=== PATIENT | male | born 1975 | race Caucasian/White ===

== ENCOUNTER → 2020-05-03 10:17 | Outpatient (CLI) | payer MEDICAID, SELFPAY ==
--- NOTE | 2020-05-03 10:27 | XR_ITS ---
PROCEDURE: XR ELBOW RT MIN 3V CLINICAL INDICATION: tennis elbow Elbow pain COMPARISON: No exams were available for comparison FINDINGS: No fracture or dislocation. No lytic or blastic change. There is normal mineralization. The joint spaces are well-preserved. No significant degenerative/arthritic changes. No erosive changes evident. Other findings:There is a faint area calcification noted along the medial epicondyle. This is nonspecific but could be seen with prior ligamentous injury or dystrophic calcification. There is also faint calcific density along the lateral epicondyle which could also be due to prior ligamentous injury or dystrophic calcification. IMPRESSION: No acute finding. Faint calcification at the medial lateral epicondyle which could be due to prior injury or dystrophic calcification from inflammatory change such as epicondylitis. MRI may confirm medial or lateral epicondylitis if clinically warranted Dictated by: Quincy King MD 05/03/2020 15:19 Electronically signed by Quincy King MD in [place] 05/03/2020 15:19
== END ==
PROVIDERS: PCP Emergency Medicine; Visit Provider Orthopaedic Surgery
DX: M77.11 Lateral epicondylitis, right elbow (principal)
CPT/HCPCS: 73080

== ENCOUNTER → 2021-01-25 07:54 | Outpatient (CLI) | payer MEDICAID, SELFPAY ==
[2021-01-25 08:17] LABS: Basophils # 0.1 K/mm3 (0-0.2); Basophils % 0.8 % (0.1-2.0); Eosinophils # 0.2 K/mm3 (0.0-0.4); Eosinophils % 3.1 % (0.1-12.0); Hematocrit 40.6 % (42.0-52.0); Hemoglobin 13.6 g/dL (14.1-18.0); Lymphocytes # 2.2 K/mm3 (0.7-4.5); Mean Corpuscular HGB Conc 33.5 g/dL (31.8-35.4); Mean Corpuscular Hemoglobin 30.3 pg (27.0-31.2); Mean Corpuscular Volume 90.5 fl (80-94); Mean Platelet Volume 7.9 fl (7.4-10.4); Monocytes # 0.3 K/mm3 (0.1-1.0); Monocytes % 5.5 % (1.7-9.3); Neutrophils # 3.2 K/mm3 (1.8-7.8); Neutrophils % 53.6 % (37.0-80.0); Platelet Count 226 K/mm3 (142-424); Red Blood Count 4.49 M/mm3 (4.60-6.20); Red Cell Distribution Width 13.2 % (11.5-17.5)
[2021-01-25 08:45] LABS: Chloride 104 mmol/L (98-107); Sodium 140 mmol/L (136-145)
[2021-01-25 08:46] LABS: Potassium 4.3 mmoL/L (3.5-5.1)
[2021-01-25 08:48] LABS: Blood Urea Nitrogen 16 mg/dl (9-20); Estimated Glomerular Filt Rate 105 ml/min (>60); GFR (African American) 126 ML/MIN (>60)
[2021-01-25 08:49] LABS: Anion Gap 11.3 mEq/L (5-15); Calcium 9.6 mg/dl (8.4-10.2); Carbon Dioxide 29 mmol/L (22.0-30.0); Glucose 111 mg/dl (74-100)
[2021-01-25 09:08] LABS: Coronavirus 19 IgG Antibody Negative (Negative); Coronavirus 19 IgM Antibody Negative (Negative)
== END ==
PROVIDERS: Visit Provider Orthopaedic Surgery
DX: Z01.818 Encounter for other preprocedural examination (principal); Z20.822 Contact with and (suspected) exposure to COVID-19; M77.11 Lateral epicondylitis, right elbow
CPT/HCPCS: 36415; 80048; 85025; 86328

== ENCOUNTER 2021-01-27 08:45 | Day surgery (SDC) | payer MEDICAID, SELFPAY ==
[2021-01-25 10:23] VITALS: BMI 37.9
[2021-01-27] VITALS (13 sets, daily range): BP systolic 112–178; BP diastolic 53–93; PULSE 53–76; RESP 14–18; TEMP 36.3–36.8; O2SAT 92–100
--- NOTE | 2021-01-27 10:27 | P.PN_ITS ---
[facility] Anesthesia Checklist - Structural Data Admitted From: Home Planned Operative Procedure/s: r elbow I/D Consent for Planned Operative Procedure(s) Verified: Yes - Additional verifications Anesthesia Reactions: No Hx Blood Transfusions: No Blood Transfusion Reaction: No - Airway Assessment C-Spine Mobility Assessed: Yes TMJ Mobility Assessed: Yes Dentition: Poor Dentition - Neurological Assessment Level of Consciousness: Awake, Alert, Appropriate - Anesthesia Plan Anesthesia Risk discussed: Yes Anesthesia Plan: Verified ASA Class: II Anesthesia Type: General - Preoperative Comments Pre-Operative Comments: pt refuses block for po pain relief [facility] History I have reviewed the patient's past medical history: Yes Medical History: Reports:: Asthma, MRSA (knee) Denies:: Cancer, Diabetes Mellitus Type 1, Diabetes Mellitus Type 2, Internal Pacemaker, Seizures *Have you ever received a pneumonia vaccine?: No *Have you received a flu vaccine this season?: No Other Medical History: Denies: Blood Transfusion Reaction Anesthesia experience/problems:: none Laterality Cases: Right: Other Other Surgeries: Yes: Hernia Repair. No: Pacemaker Amputation: No Fractures: No - *Social History Last grade of school completed: High school graduate Smoking Status: Never smoker Alcohol Intake: never Substance Use Type: painkillers *Occupational Status:: employed Household Members: spouse *Travel in the last 8 weeks: None Family Hx:: Asthma, Cancer
--- NOTE | 2021-01-27 12:26 | P.PN_ITS ---
[facility] Anesthesia Record Part I Intake, IV Amount: 200 Estimated blood loss (mL): 10 Urine output (mL): 0 Blood Pressure: 112/53 SaO2: 92 Pulse Rate: 64 Respiratory Rate: 14 Temperature: 98.2 F Patient is:: Drowsy Stable to PACU at:: 12:24
--- NOTE | 2021-01-27 14:26 | PC.NURSE ---
PT READY TO GO HOME. PT UP AMBULATING IN ROOM. PT STATES PAIN IS BETTER STILL RATING PAIN A 7. PT DENIES THE NEED FOR ANYTHING ELSE FOR PAIN.
--- NOTE | 2021-01-27 16:34 | HMH.OPNOTE ---
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 I initially saw him in April 2020, at which time corticosteroid injection was administered. Prior to seeing me, he had received 2 prior injections from a surgeon in [place]. All injections have been helpful in decreasing pain, but they have been temporary in nature his pain has always recurred. He has tried physical therapy in the past without improvement. I prescribed therapy at his last visit but he was unable to do this due to Covid restrictions. Pain is rated a 10 out of 10 with any use of the arm. 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 Non-smoker. He has a history of substance use disorder and is on maintenance Suboxone therapy. He reports no chronic baseline medical comorbidities but does take gabapentin and uses inhalers for his lungs. I discussed treatment options with the patient at length, and I would not recommend continued corticosteroid injection. He has had 3 injections in total, 1 from myself. Physical therapy has been ineffective in the past and he does not wish to continue doing more therapy. I do not think PRP injections are likely to be effective. He is interested in surgical treatment at this time. I discussed the risks of surgery with the patient, including but not limited to: bleeding, infection, neurovascular damage, tendon rupture, failure of the tendon to heal, persistent pain and/or weakness despite therapy, and need for further surgery in the future. The patient vocalized understanding and provided informed consent for the procedure. Operative findings:: implant: Arthrex 1.8mm knotless FiberTak suture anchor x1 Operative note:: The patient was identified in preoperative holding and the right elbow signed by myself. Consent was reviewed and verified with the patient, all questions answered. Anesthesia discussed options with the patient, who declined peripheral nerve block. The decision was made to perform the surgery under general anesthetic using an LMA. He was then taken to the operating room, where he was placed supine on the operative table in the right upper extremity placed on a attached and well-padded arm table. All bony prominences on the left upper and bilateral lower extremities were well-padded. 1 g cefazolin was infused intravenously and general anesthesia induced with an LMA. Once the patient was asleep, the right arm was prepped and draped in the usual sterile fashion. Once the arm was draped, a sterile tourniquet was placed on the upper right arm. Timeout was then performed, identifying the correct patient, correct procedure, and correct site. The procedure was begun by making a oblique incision over the lateral aspect of the right elbow, centered over the lateral column of the humerus and the radiocapitellar joint. This measured approximately 3 cm long. Skin was incised only; after this subcutaneous tissue was bluntly dissected with tenotomy scissors, spreading tissue until the common extensor origin on the lateral epicondyle was identified. A fresh 15 blade was used to incise the common extensor origin and reflect the ECRL and EDC, elevating them off the ECRB. The ECRB was seen to be partially torn with significant degeneration. All degenerative tendon was debrided, removing the degenerated ECRB at its attachment. The lateral epicondyle was lightly debrided with a rongeur, slightly decorticating the bone. The elbow joint capsule was not violated and the lateral ulnar collateral ligament was not vi
[2021-01-28 08:03] VITALS: BP 178/86; PULSE 56; TEMP 36.3
--- NOTE | 2021-01-28 08:03 | P.PN_ITS ---
[facility] Anesthesia Record Part II Discharge Time: 13:06 Destination: Surgical Day Care (OP Surgery) PACU nurse assessment reviewed?: Yes Patient Condition:: Good Anesthesia Complications:: None Swallowing reflex intact?: Yes Cyanosis?: No Blood Pressure: 178/86 Pulse Rate: 56 Temperature: 97.4 F Mental Status: Alert & Oriented Pain level:: 7 Nausea and/or vomitting:: None Intake, IV Amount: 0
== END 2021-01-27 14:26 | disposition home or self-care (01) ==
LOC: OR 08:47
PROVIDERS: PCP Emergency Medicine; Visit Provider Orthopaedic Surgery
PROC: (CPT 24359; principal; 2021-01-27 10:15)
DX: M77.11 Lateral epicondylitis, right elbow (principal); Z79.899 Other long term (current) drug therapy
CPT/HCPCS: 24359; 96374; C1713

== ENCOUNTER → 2021-07-05 19:09 | Outpatient (CLI) | payer MEDICAID, SELFPAY ==
[2021-07-05 20:43] LABS: Amphetamine/Metha Screen,Urine Negative ng/ml (<1000); Barbiturates Screen,Urine Negative ng/ml (<200)
[2021-07-05 20:45] LABS: Benzodiazepines Screen,Urine Negative ng/ml (<200)
[2021-07-05 20:46] LABS: Cannabinoid Screen,Urine Negative ng/ml (<50)
[2021-07-05 20:47] LABS: Cocaine Screen,Urine Negative ng/ml (<300); Methadone Screen,Urine Negative ng/ml (<300)
[2021-07-05 20:48] LABS: Opiate Screen,Urine Negative ng/ml (<300)
[2021-07-05 20:49] LABS: Phencyclidine Screen,Urine Negative ng/ml (<25)
== END ==
PROVIDERS: Visit Provider Emergency Medicine
DX: Z79.899 Other long term (current) drug therapy (principal)
CPT/HCPCS: 80305

== ENCOUNTER 2021-10-03 12:27 | Emergency (ER) | payer MEDICAID, SELFPAY ==
[2021-10-03 13:35] VITALS: BP 143/88; PULSE 77; RESP 16; TEMP 36.9; O2SAT 97; BMI 37.9
--- NOTE | 2021-10-03 13:49 | HMH.EDUTC ---
[facility] Disposition Clinical Impression: Left otitis media Qualifiers: Otitis media type: suppurative Chronicity: acute Recurrence: non-recurrent Spontaneous tympanic membrane rupture: without spontaneous rupture Qualified Code(s): H66.002 - Acute suppurative otitis media without spontaneous rupture of ear drum, left ear Pharyngitis Qualifiers: Pharyngitis/tonsillitis etiology: unspecified etiology Qualified Code(s): J02.9 - Acute pharyngitis, unspecified Disposition: Home, Self-Care Condition on Discharge: Good Instructions: How to Instill Ear Drops, Middle Ear Infection Additional Instructions: Drink plenty of fluids. Take the ibuprofen for pain that we prescribed. Take the medications as directed. Stop the amoxicillin that you are on and start the augmentin 875 mg that we prescribed. Follow up with your regular doctor. GO TO THE ER FOR ANY WORSENING SYMPTOMS Don't start the oral steroids until tomorrow, since you had the shot here today. Prescriptions: Ibuprofen [Ibuprofen 800mg Tablet] 800 mg PO Q8HP PRN #30 tab PRN Reason: Moderate Pain Transmission Status: Received by [facility] Amoxicillin/Potassium Clav [Augmentin 875-125 Tablet] 1 tab PO Q12H 10 Days #20 tab Transmission Status: Received by [facility] Ciprofloxacin HCl/Dexameth [Cipro 0.3%-Dex 0.1% Otic Susp 7.5mL] 2 drops EAR-LEFT BID 7 Days #1 ml Transmission Status: Received by [facility] methylPREDNISolone [Medrol] 4 mg PO DIRECTED 6 Days #21 packet Transmission Status: Received by [facility] Referrals: Will Rock APRN [Primary Care Provider] - Forms: Work/School Release Time of Disposition: 14:06 Medical Decision Making - Medical Records Medical records reviewed: No: I reviewed the patient's medical records. - Jules Inquiry Pt receiving controlled substance: No Vital Signs: 10/03/21 13:35 10/03/21 14:28 Temperature 98.5 F 98.5 F Temperature Source Oral Pulse Rate 77 Pulse Rate [Left] 77 Respiratory Rate 16 16 Blood Pressure 143/88 H Blood Pressure [Right Arm] 143/88 H Blood Pressure Mean [Right Arm] 106 02 Sat by Pulse Oximetry 97 - Lab Data Lab results reviewed: Yes: I reviewed the patient's lab results. Orders (Tests/Meds): ED MEDICATIONS Discontinued Medications Generic Name Dose Route Start Last Admin Trade Name Chuck PRN Reason Stop Dose Admin Ceftriaxone Sodium 1 gm 10/03/21 13:58 10/03/21 14:12 Ceftriaxone 1gm Vial IM 10/03/21 13:59 1 gm ONCE ONE Administration Lidocaine HCl 0 ml 10/03/21 13:58 10/03/21 14:14 Lidocaine 1% 5ml Pf Vial IM 10/03/21 13:59 2 ml ONCE ONE Administration Methylprednisolone Sodium Succinate 125 mg 10/03/21 13:58 10/03/21 14:13 Methylprednisolone Sod Succ 125mg Vial IM 10/03/21 13:59 125 mg ONCE ONE Administration [facility] HPI - General Stated complaint: ear pain and sore throat Time Seen by Provider: 10/03/21 13:49 Mode of Arrival: Ambulatory Source of Information: Patient Limitations: No Limitations Description of Symptoms (Recalled from Triage Doc. by RN): pt c/o a L ear ache HEENT Symptoms (Recalled from RN notes): Yes (L ear ache) Resp Symptoms (Recalled from RN notes): No Skin Symptoms (Recalled from RN notes): No MS Symptoms (Recalled from RN notes): No Functional Status (Recalled from RN notes): wnl - History of Present Illness Provider Complaint: He states that for the past 4 days he has had moderate to severe left ear pain. He had a cold and a scratchy sore throat last week, but that got better other than the ear pain. He has had dizziness at times also. He is on amoxicillin that was prescribed by the [facility] clinic 2 days ago, but his ear pain is getting worse instead of better. He thinks that his ear drum may have busted. He has had some tannish discharge from that ear canal off and on since yesterday, but his pain is worsening instead of getting better. -
[2021-10-03 14:28] VITALS: BP 143/88; PULSE 77; RESP 16; TEMP 36.9
== END 2021-10-03 14:31 | disposition home or self-care (01) ==
PROVIDERS: Emergency Provider Nurse Practitioner Family; PCP Nurse Practitioner Family
DX: H66.002 Acute suppurative otitis media without spontaneous rupture of ear drum, left ear (principal); J02.9 Acute pharyngitis, unspecified; J45.909 Unspecified asthma, uncomplicated
CPT/HCPCS: 96372; 99202; G0463

== ENCOUNTER → 2022-03-02 14:06 | Outpatient (CLI) | payer MEDICAID, SELFPAY ==
[2022-03-02 17:18] LABS: Alanine Aminotransferase 25 U/L (12-78); Albumin Level 4.1 g/dl (3.5-5.0); Albumin/Globulin Ratio 1.6 (1.1-1.8); Alkaline Phosphatase 55 U/L (38-126); Anion Gap 10.3 mEq/L (5-15); Aspartate Amino Transferase 28 U/L (17-59); Bilirubin,Total 0.3 mg/dl (0.2-1.3); Blood Urea Nitrogen 13 mg/dl (9-20); Calcium 8.9 mg/dl (8.4-10.2); Carbon Dioxide 28 mmol/L (22.0-30.0); Chloride 103 mmol/L (98-107); Chol/HDL Ratio 4.8 (1-3.5); Cholesterol 143 mg/dl (140-200); Estimated Glomerular Filt Rate 91 ml/min (>60); GFR (African American) 110 ML/MIN (>60); Globulin 2.6 g/dL (1.3-3.2); Glucose 96 mg/dl (74-100); HDL Cholesterol 30 mg/dl (40-60); Potassium 3.3 mmoL/L (3.5-5.1); Sodium 138 mmol/L (136-145); Total Protein,Serum 6.7 g/dl (6.3-8.2); Triglycerides 163 mg/dl (30-150); VLDL Cholesterol 33 mg/dL (0-40)
[2022-03-02 17:24] LABS: Basophils # 0.1 K/mm3 (0-0.2); Basophils % 1.1 % (0.1-2.0); Eosinophils # 0.1 K/mm3 (0.0-0.4); Eosinophils % 2.2 % (0.1-12.0); Hematocrit 37.6 % (42.0-52.0); Hemoglobin 12.9 g/dL (14.1-18.0); Lymphocytes # 2.3 K/mm3 (0.7-4.5); Lymphocytes % 36.3 % (10-50); Mean Corpuscular HGB Conc 34.3 g/dL (31.8-35.4); Mean Corpuscular Hemoglobin 30.6 pg (27.0-31.2); Mean Corpuscular Volume 89.4 fl (80-94); Mean Platelet Volume 9.1 fl (7.4-10.4); Monocytes # 0.6 K/mm3 (0.1-1.0); Monocytes % 10.1 % (1.7-9.3); Neutrophils # 3.2 K/mm3 (1.8-7.8); Neutrophils % 50.3 % (37.0-80.0); Platelet Count 309 K/mm3 (142-424); Red Blood Count 4.21 M/mm3 (4.60-6.20); Red Cell Distribution Width 13.5 % (11.5-17.5); White Blood Count 6.3 K/mm3 (4.8-10.8)
[2022-03-02 17:30] LABS: Direct LDL Cholesterol 73.49 mg/dL (100-129)
[2022-03-02 17:35] LABS: T4 (Thyroxine) 8.6 ug/dl (5.53-11.0)
[2022-03-02 17:36] LABS: 25-OH Vitamin D, Total 35.4 ng/mL (30-100)
[2022-03-02 17:49] LABS: Prostate Specific Ag Screen 0.4 ng/ml (0.0-4.0); Thyroid Stimulating Hormone 1.16 uIU/mL (0.465-4.68)
[2022-03-02 18:08] LABS: Vitamin B12 662 pg/mL (239-931)
== END ==
PROVIDERS: PCP Nurse Practitioner Family; Visit Provider Nurse Practitioner Family
DX: G62.9 Polyneuropathy, unspecified (principal); N52.1 Erectile dysfunction due to diseases classified elsewhere; R53.83 Other fatigue; E66.9 Obesity, unspecified; Z68.39 Body mass index [BMI] 39.0-39.9, adult
CPT/HCPCS: 80053; 80061; 82306; 82607; 84403; 84436; 84443; 85025; G0103

== ENCOUNTER → 2022-05-26 16:08 | Outpatient (CLI) | payer SELFPAY ==
[2022-05-26 16:59] LABS: Basophils # 0.1 K/mm3 (0-0.2); Basophils % 1.3 % (0.1-2.0); Eosinophils # 0.2 K/mm3 (0.0-0.4); Eosinophils % 2.7 % (0.1-12.0); Hematocrit 38.6 % (42.0-52.0); Hemoglobin 12.5 g/dL (14.1-18.0); Lymphocytes # 2.9 K/mm3 (0.7-4.5); Lymphocytes % 37.8 % (10-50); Mean Corpuscular HGB Conc 32.5 g/dL (31.8-35.4); Mean Corpuscular Hemoglobin 30.1 pg (27.0-31.2); Mean Corpuscular Volume 92.7 fl (80-94); Mean Platelet Volume 8.2 fl (7.4-10.4); Monocytes # 0.4 K/mm3 (0.1-1.0); Monocytes % 5.5 % (1.7-9.3); Neutrophils % 52.8 % (37.0-80.0); Platelet Count 274 K/mm3 (142-424); Red Blood Count 4.17 M/mm3 (4.60-6.20); White Blood Count 7.5 K/mm3 (4.8-10.8)
[2022-05-26 17:20] LABS: Alanine Aminotransferase 28 U/L (12-78); Albumin Level 4.1 g/dl (3.5-5.0); Alkaline Phosphatase 64 U/L (38-126); Anion Gap 8.3 mEq/L (5-15); Aspartate Amino Transferase 25 U/L (17-59); Bilirubin,Direct 0.2 mg/dl (0.0-0.4); Bilirubin,Total 0.2 mg/dl (0.2-1.3); Bilirubin,Unconjugated 0.1 mg/dL (0.0-1.1); Blood Urea Nitrogen 14 mg/dl (9-20); Calcium 9.1 mg/dl (8.4-10.2); Carbon Dioxide 30 mmol/L (22.0-30.0); Chloride 108 mmol/L (98-107); Estimated Glomerular Filt Rate 121 ml/min (>60); GFR (African American) 147 ML/MIN (>60); Glucose 94 mg/dl (74-100); Potassium 4.3 mmoL/L (3.5-5.1); Sodium 142 mmol/L (136-145)
[2022-05-28 23:18] LABS: HIV Screen 4th Generation wRfx Non Reactive; Hep A Ab, IgM Negative; Hepatitis B Core Antibody IgM Negative; Hepatitis B Surface Antigen Negative; Hepatitis C Antibody <0.1
== END ==
PROVIDERS: PCP Emergency Medicine; Visit Provider Family Medicine Addiction Medicine
DX: F11.20 Opioid dependence, uncomplicated (principal); Z11.4 Encounter for screening for human immunodeficiency virus [HIV]
CPT/HCPCS: 36415; 80048; 80074; 80076; 85025; 86703; G0432

== ENCOUNTER → 2022-08-30 16:40 | Outpatient (CLI) | payer SELFPAY ==
[2022-09-06 11:44] LABS: Testosterone, Total, LC/MS 130.5 ng/dL (264.0-916.0); Testosterone,Free 2.6 pg/mL (6.8-21.5)
== END ==
PROVIDERS: PCP Nurse Practitioner Family; Visit Provider Nurse Practitioner Family
DX: E29.1 Testicular hypofunction (principal); R53.83 Other fatigue
CPT/HCPCS: 84402; 84403

== ENCOUNTER 2023-06-29 16:54 | Emergency (ER) | payer BC, SELFPAY ==
[2023-06-29 16:54] VITALS: BP 146/89; PULSE 77; RESP 16; TEMP 36.8; O2SAT 100; BMI 34.9
--- NOTE | 2023-06-29 18:00 | EXP.UTC ---
Discharge Plan Disposition Patient Disposition: Home, Self-Care Condition: Good Prescriptions Prescriptions: New amoxicillin-pot clavulanate 875-125 mg Tablet 1 tab PO Q12H Qty: 20 0RF ciprofloxacin-dexamethasone [Ciprodex] 0.3-0.1 % drops,suspension 4 drp otic (ear) BID 7 Days Qty: 7.5 0RF No Action budesonide-formoterol 80-4.5 mcg/actuation HFA aerosol inhaler 1 puff INHALATION DAILY Qty: 10.2 1RF albuterol sulfate 90 mcg/actuation HFA aerosol inhaler 2 puff INHALATION Q4-6H PRN (Reason: shortness of breath or wheezing) Qty: 8.5 2RF gabapentin 800 mg tablet 800 mg PO QID Qty: 120 2RF Combivent Respimat 20-100 mcg/actuation mist See Rx Instructions .ROUTE .COMPLEX Qty: 4 4RF Dose Instruction: INHALE 1 PUFF BY MOUTH TWICE DAILY NEEDED FOR SHORTNESS OF BREATH OR wheezing Rx Instructions: INHALE 1 PUFF BY MOUTH TWICE DAILY NEEDED FOR SHORTNESS OF BREATH OR wheezing buprenorphine-naloxone 8-2 mg tablet, sublingual SUBLINGUAL famotidine 20 mg tablet 20 mg PO DAILY Qty: 90 3RF sildenafil 100 mg tablet 100 mg PO DAILY Qty: 30 0RF phentermine [Adipex-P] 37.5 mg tablet 37.5 mg PO DAILY 30 Days Qty: 30 0RF Rx Instructions: must administer 30 minutes before or 1-2 hours after breakfast Referrals Follow up/Referrals: Will Rock APRN [Primary Care Provider] - See instructions Activity Restrictions/Add. Instructions Additional Instructions/Restrictions: Take medication as prescribed FOllow up with your Family Doctor if no improvement or any worsening of symptoms Return if needed Straight to ER if any life threatening symptoms Clinical Impressions Clinical Impression: Otitis media Qualifiers: Otitis media type: unspecified Laterality: right Qualified Code(s): H66.91 - Otitis media, unspecified, right ear Otitis externa Qualifiers: Otitis externa type: unspecified type Chronicity: unspecified Laterality: right Qualified Code(s): H60.91 - Unspecified otitis externa, right ear Instructions Patient Instructions: Amoxicillin and Clavulanic Acid, Ciprofloxacin and Dexamethasone Otic Discharge ED Provider: Melanie Montilla [facility] HPI General Stated complaint: right ear ache Mode of Arrival: Ambulatory Source of Information: Patient Limitations: No Limitations Time Seen by Provider: 06/29/23 18:00 Description of Symptoms (Recalled from Triage Doc. by RN): Patient reports right ear pain since Sunday. HEENT Symptoms (Recalled from RN notes): Yes Resp Symptoms (Recalled from RN notes): No Skin Symptoms (Recalled from RN notes): No MS Symptoms (Recalled from RN notes): No Functional Status (Recalled from RN notes): wnl History of Present Illness Provider Complaint: Patient states for the last week he has been having pain in his right ear States that his whole ear feels sore now and it has continued to get worse so this evening he came in to get it checked Related Data Home Medications Medication Instructions Recorded Confirmed buprenorphine 8 mg-naloxone 2 mg tab sublingual 10/01/21 06/15/23 sublingual tablet Previous Rx's Medication Instructions Recorded sildenafil 100 mg tablet 100 mg PO DAILY #30 tabs 03/07/22 albuterol sulfate 90 mcg/actuation 2 puff inhalation Q4-6H PRN 11/29/22 aerosol inhaler shortness of breath or wheezing #8.5 grams budesonide-formoterol HFA 80 1 puff inhalation DAILY Breathing 11/29/22 mcg-4.5 mcg/actuation aerosol problems #10.2 grams inhaler famotidine 20 mg tablet 20 mg PO DAILY #90 tabs 02/21/23 gabapentin 800 mg tablet 800 mg PO QID Pain #120 tabs 05/17/23 ipratropium 20 mcg-albuterol 100 See Rx Instructions .Route 05/17/23 mcg/actuation mist for inhalation .COMPLEX #4 grams (Combivent Respimat) phentermine 37.5 mg tablet 37.5 mg PO DAILY 30 days #30 tabs 06/15/23 (Adipex-P) amoxicillin 875 mg-potassium 1 tab PO Q12H #20 tabs 06/29/23 clavulanate 125 mg tablet ciprofloxacin 0.3 %-dexa
[2023-06-29 18:20] VITALS: BP 146/89; PULSE 77; RESP 16; TEMP 36.8; O2SAT 100
== END 2023-06-29 18:20 | disposition home or self-care (01) ==
PROVIDERS: Emergency Provider Nurse Practitioner; PCP Nurse Practitioner Family
DX: H60.91 Unspecified otitis externa, right ear (principal); Z68.41 Body mass index [BMI] 40.0-44.9, adult; Z87.891 Personal history of nicotine dependence
CPT/HCPCS: 99212; 99214; G0463

== ENCOUNTER 2023-08-25 21:08 | Observation (INO) | payer BC, SELFPAY ==
[2023-08-25 21:16] VITALS: BP 148/79; PULSE 95; RESP 17; TEMP 37.1; O2SAT 98; BMI 35.3
[2023-08-25 22:05] LABS: Alanine Aminotransferase 31 U/L (12-78); Albumin Level 4.4 g/dl (3.5-5.0); Albumin/Globulin Ratio 1.5 (1.1-1.8); Alkaline Phosphatase 49 U/L (38-126); Anion Gap 14.1 mEq/L (5-15); Aspartate Amino Transferase 31 U/L (17-59); Bilirubin,Total 0.7 mg/dl (0.2-1.3); Blood Urea Nitrogen 16 mg/dl (9-20); Calcium 8.8 mg/dl (8.4-10.2); Carbon Dioxide 26 mmol/L (22.0-30.0); Chloride 102 mmol/L (98-107); Creatinine Clearance Estimated 218 mL/min (50-200); Estimated Glomerular Filt Rate 104 ml/min (>60); GFR (African American) 125 ML/MIN (>60); Globulin 2.9 g/dL (1.3-3.2); Glucose 125 mg/dl (74-100); Potassium 3.1 mmoL/L (3.5-5.1); Sodium 139 mmol/L (136-145); Total Protein,Serum 7.3 g/dl (6.3-8.2)
--- NOTE | 2023-08-25 22:30 | CT_ITS ---
PROCEDURE INFORMATION: Exam: CT Right Lower Extremity With Contrast; Lower Leg Exam date and time: 08/25/2023 11:40 PM Age: 47 years old Clinical indication: Pain; Patient HX: Wound just below right knee; Additional info: Leg swelling, pain wound TECHNIQUE: Imaging protocol: CT of the right lower extremity with intravenous contrast was performed. Exam focused on the lower leg. Radiation optimization: All CT scans at this facility use at least one of these dose optimization techniques: automated exposure control; mA and/or kV adjustment per patient size (includes targeted exams where dose is matched to clinical indication); or iterative reconstruction. Contrast material: ISOVUE; Contrast volume: 100 ml; Contrast route: IV; REPORTING DATA: Count of CT and Cardiac NM exams in prior 12 months: This patient has received 0 known CTs and 0 known cardiac nuclear medicine studies in the 12 months prior to the current study. COMPARISON: No relevant prior studies available. FINDINGS: Bones/joints: Tricompartmental osteoarthritis noted at the knee. Corticated densities are noted medial to the patella, potentially dystrophic calcification in the medial patellar retinaculum or sequela of prior injury. No acute fracture. No bony destructive change. There is a small Marshall's cyst without evidence of rupture. Soft tissues: There is diffuse subcutaneous edema involving the calf. A distinct cutaneous defect is not appreciated but there is skin thickening and indentation ventral to the patellar tendon. No soft tissue gas. No discrete fluid collection. No radiopaque foreign body. Vasculature: Veins within the muscular compartment are not compressed. IMPRESSION: 1. Considerable diffuse cutaneous thickening and subcutaneous edema without discrete fluid collection, foreign body, or soft tissue gas. 2. Tricompartmental osteoarthritis with small Marshall's cyst. No evidence Marshall cyst rupture. 3. No evidence of compartment syndrome.
[2023-08-25 22:33] VITALS: BP 132/78; PULSE 88; RESP 18; TEMP 36.8
[2023-08-25 22:42] LABS: VBG HCO3 25.2 mmol/L (23-30); VBG Oxygen Saturation 93.9 % (50-70); VBG PCO2 44.1 mmol/L (35-51); VBG PH 7.38 mmol/L (7.31-7.41); VBG Total CO2 26.6 mmol/L (23-27)
--- NOTE | 2023-08-25 22:42 | PC.NURSE ---
Spoke to [facility] for vancomycin conuslt. Stated he would adjust the medication as needed.
[2023-08-25 22:43] LABS: INR 0.99 (0.9-1.1); Prothrombin Time 10.7 seconds (10.1-12.5)
[2023-08-25 22:47] LABS: Creatine Kinase 264 U/L (55-170)
--- NOTE | 2023-08-25 22:57 | PC.NURSE ---
Called to reverify vancomycin dose, per katia patient is to recieve 2500mg of vancomycin at this time
--- NOTE | 2023-08-25 23:44 | PC.NURSE ---
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
--- NOTE | 2023-08-25 23:54 | HMH.EDGENADL ---
Discharge Plan Disposition Patient Disposition: Admitted Chief Complaint: Skin/Abscess/Foreign Body Prescriptions Prescriptions: No Action budesonide-formoterol 80-4.5 mcg/actuation HFA aerosol inhaler 1 puff INHALATION DAILY Qty: 10.2 1RF albuterol sulfate 90 mcg/actuation HFA aerosol inhaler 2 puff INHALATION Q4-6H PRN (Reason: shortness of breath or wheezing) Qty: 8.5 2RF Combivent Respimat 20-100 mcg/actuation mist See Rx Instructions .ROUTE .COMPLEX Qty: 4 4RF Dose Instruction: INHALE 1 PUFF BY MOUTH TWICE DAILY NEEDED FOR SHORTNESS OF BREATH OR wheezing Rx Instructions: INHALE 1 PUFF BY MOUTH TWICE DAILY NEEDED FOR SHORTNESS OF BREATH OR wheezing gabapentin 800 mg tablet 800 mg PO QID Qty: 120 2RF phentermine [Adipex-P] 37.5 mg tablet 37.5 mg PO DAILY 30 Days Qty: 30 0RF Rx Instructions: must administer 30 minutes before or 1-2 hours after breakfast sildenafil 100 mg tablet 100 mg PO DAILY Qty: 30 0RF buprenorphine-naloxone 8-2 mg tablet, sublingual SUBLINGUAL famotidine 20 mg tablet 20 mg PO DAILY Qty: 90 3RF Referrals Follow up/Referrals: Will Rock APRN [Primary Care Provider] - See instructions Clinical Impressions Clinical Impression: Cellulitis Instructions Patient Instructions: DI for Skin Abscess Discharge ED Provider: Bunny Rene General Adult HPI <Bunny Rene MD - Last Filed: 08/26/23 00:47> General Chief complaint: Skin/Abscess/Foreign Body Stated complaint: RT leg swelling, poss spider bite Time Seen by Provider: 08/25/23 22:30 Mode of Arrival: Family Vehicle Source of Information: Patient Limitations: Language Barrier Description of Symptoms (Recalled from ER Triage Doc. by RN): 47 yo male presents with CC of right lower leg red spot wound, might be a spider bite . States that yesterday he noticed a red spot on his right lateral knee area, and then noticed a distinct enlargement this evening from yesterday. enitrety of area is 8cm x7cm; description of erythema. Interior (ulcerated, open,draining serosanguinous drainage) is 2cm x 3cm. 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 The patient reports that the pain worsened throughout the day, describing it as a burning sensation and feeling like lightning and striking. The patient denies any injury to the leg but mentions a scab on the knee from rubbing it on the floor while installing a floating floor. The pain is reported to be present throughout the entire leg, stopping just below the knee. The patient has a history of a staph infection in the same leg back in 2007, which required drainage and a hospital stay of eight to nine days. 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 The patient noticed swelling in the leg this morning, which was not severe but felt tight. The patient reports no numbness or tingling, only a burning sensation and throbbing pain. The patient typically wears long pants at work. Related Data Home Medications Medication Instructions Recorded Confirmed buprenorphine 8 mg-naloxone 2 mg tab sublingual 10/01/21 08/16/23 sublingual tablet Previous Rx's Medication Instructions Recorded albuterol sulfate 90 mcg/actuation 2 puff inhalation Q4-6H PRN 11/29/22 aerosol inhaler shortness of breath or wheezing #8.5 grams budesonide-formoterol HFA 80 1 puff inhalation DAILY Breathing 11/29/22 mcg-4.5 mcg/actuation aerosol problems #10.2 grams inhaler famotidine 20 mg tablet 20 mg PO DAILY #90 tabs 02/21/23 ipratropium 20 mcg-albuterol 100 See Rx Instructions .Route 05/17/23 mcg/actuation mist for inhalation .COMPLEX #4 grams (Combivent Respimat) gabapentin 800 mg tablet 800 mg PO QI
[2023-08-26 00:27] LABS: Basophils % 0.3 % (0.1-2.0); Eosinophils # 0.2 K/mm3 (0.0-0.4); Eosinophils % 1.6 % (0.1-12.0); Hemoglobin 12.6 g/dL (14.1-18.0); Lymphocytes # 2.7 K/mm3 (0.7-4.5); Lymphocytes % 27.5 % (10-50); Mean Corpuscular Hemoglobin 32.2 pg (27.0-31.2); Mean Corpuscular Volume 89.3 fl (80-94); Mean Platelet Volume 7.7 fl (7.4-10.4); Monocytes # 0.6 K/mm3 (0.1-1.0); Monocytes % 6.1 % (1.7-9.3); Neutrophils # 6.4 K/mm3 (1.8-7.8); Neutrophils % 64.6 % (37.0-80.0); Platelet Count 226 K/mm3 (142-424); Red Blood Count 3.92 M/mm3 (4.60-6.20); White Blood Count 9.9 K/mm3 (4.8-10.8)
--- NOTE | 2023-08-26 01:00 | PC.NURSE ---
Patient arrived to floor via wheelchair at 01:50.
[2023-08-26 01:17] VITALS: BP 148/84; PULSE 80; RESP 20; TEMP 36.4; O2SAT 100; BMI 36.5
--- NOTE | 2023-08-26 01:22 | PC.WOUNDNOTE ---
right lower extremity
--- NOTE | 2023-08-26 01:25 | EXP.HP ---
History of Present Illness *Admission Date: 08/26/23 *History of present illness: This is a 47 yo M obese, with PMHx of GERD, peripheral neuropathy, Asthma who presented with a chief complaint of pain and redness in their leg, which began yesterday evening while changing the alternator on their truck. The patient reports that the pain worsened throughout the day, describing it as a burning sensation and feeling like lightning and striking. The patient denies any injury to the leg but mentions a scab on the knee from rubbing it on the floor while installing a floating floor. The pain is reported to be present throughout the entire leg, stopping just below the knee. The patient has a history of a staph infection in the same leg back in 2007, which required drainage and a hospital stay of eight to nine days. The patient reports no numbness or tingling, only a burning sensation and throbbing pain. Admitted for further treatment. [facility] Disclaimer: The information contained in this section may have been updated after the patient was seen, as this information can be updated by other users. Medical History (Updated 08/26/23 @ 09:58 by David Vasquez MD) BMI 40.0-44.9, adult Left otitis media Otitis externa Otitis media Social History (Updated 08/26/23 @ 02:06 by Rolf Spring RN) Smoking Status: Current every day smoker second hand exposure: Yes alcohol intake: never substance use type: painkillers current occupational status: employed Travel in the last 8 weeks: None household members: spouse current occupation: [employer] current occupational exposures/hazards: No caffeine: Yes Review of Systems Review of Systems Review of systems:: pertinent systems reviewed and negative unless documented below Meds Home Medications and Allergies Home Medications Medication Instructions Recorded Confirmed Type buprenorphine 8 mg-naloxone 2 mg 1 tab sublingual DAILY 10/01/21 08/26/23 History sublingual tablet albuterol sulfate 90 mcg/actuation 2 puff inhalation Q4-6H PRN 11/29/22 08/26/23 Rx aerosol inhaler shortness of breath or wheezing #8.5 grams budesonide-formoterol HFA 80 1 puff inhalation DAILY Breathing 11/29/22 08/26/23 Rx mcg-4.5 mcg/actuation aerosol problems #10.2 grams inhaler famotidine 20 mg tablet 20 mg PO DAILY #90 tabs 02/21/23 08/26/23 Rx ipratropium 20 mcg-albuterol 100 See Rx Instructions .Route 05/17/23 08/26/23 Rx mcg/actuation mist for inhalation .COMPLEX #4 grams (Combivent Respimat) gabapentin 800 mg tablet 800 mg PO QID Pain #120 tabs 08/16/23 08/26/23 Rx phentermine 37.5 mg tablet 37.5 mg PO DAILY 30 days #30 tabs 08/16/23 08/26/23 Rx (Adipex-P) sildenafil 100 mg tablet 100 mg PO DAILY #30 tabs 08/16/23 08/26/23 Rx New Prescriptions to Start Prescriptions: Allergies Allergy/AdvReac Type Severity Reaction Status Date / Time No Known Allergies Allergy Verified 08/16/23 15:26 Exam Data for Last 24 hours Vital signs and Labs for Last 24 Hours: Temp Pulse Resp BP Pulse Ox O2 Del Method 98.3 F 88 18 132/78 98 Room Air 08/25/23 22:33 08/25/23 22:33 08/25/23 22:33 08/25/23 22:33 08/25/23 21:16 08/25/23 21:16 Laboratory Results - last 24 hr 08/25/23 00:18: WBC 9.9, RBC 3.92 L, Hgb 12.6 L, Hct 35.0 L, MCV 89.3, MCH 32.2 H, MCHC 36.0 H, RDW 13.0, Plt Count 226, MPV 7.7, Neut % (Auto) 64.6, Lymph % (Auto) 27.5, [place] % (Auto) 6.1, Eos % (Auto) 1.6, Baso % (Auto) 0.3, Neut # (Auto) 6.4, Lymph # (Auto) 2.7, [place] # (Auto) 0.6, Eos # (Auto) 0.2, Baso # (Auto) 0.0 08/25/23 21:37: PT 10.7, INR 0.99, Sodium 139, Potassium 3.1 L, Chloride 102, Carbon Dioxide 26, Anion Gap 14.1, BUN 16, Creatinine 0.80, Estimated Creat Clear 218, Estimated GFR 104, Est GFR ( Amer) 125, Glucose 125 H, Calcium 8.8, Total Bilirubin 0.7, AST 31, ALT 31, Alkaline Phosphatase 49, Total Creatine Kinase 264 H, Total Protein 7.3, Albumin 4.4, Globulin 2.9, Albumin/
[2023-08-26 01:29] VITALS: BP 140/86; PULSE 88; RESP 18; TEMP 37.1
--- NOTE | 2023-08-26 01:34 | PC.NURSE ---
report given to PREM Garcia: 2nd floor
[2023-08-26 03:57] LABS: Lactic Acid 0.7 mmol/L (0.7-2.1)
[2023-08-26 04:00] VITALS: BP 140/72; PULSE 81; RESP 20; TEMP 36.7; O2SAT 96
--- NOTE | 2023-08-26 05:18 | PC.NURSE ---
pt has c/o right lower extremity pain 1x, tx per dec - wound culture collected - wound picture documented, no spreading noted since admission tonight. otherwise no complaints per pt. bed locked and in lowest position, call amanda within reach.
[2023-08-26 07:02] LABS: Basophils % 0.2 % (0.1-2.0); Eosinophils # 0.2 K/mm3 (0.0-0.4); Eosinophils % 1.9 % (0.1-12.0); Hemoglobin 12.5 g/dL (14.1-18.0); Lymphocytes # 2.1 K/mm3 (0.7-4.5); Lymphocytes % 19.9 % (10-50); Mean Corpuscular HGB Conc 34.6 g/dL (31.8-35.4); Mean Corpuscular Hemoglobin 31.7 pg (27.0-31.2); Mean Corpuscular Volume 91.7 fl (80-94); Mean Platelet Volume 7.5 fl (7.4-10.4); Monocytes # 0.8 K/mm3 (0.1-1.0); Monocytes % 7.2 % (1.7-9.3); Neutrophils # 7.3 K/mm3 (1.8-7.8); Neutrophils % 70.8 % (37.0-80.0); Platelet Count 228 K/mm3 (142-424); Red Blood Count 3.93 M/mm3 (4.60-6.20); Red Cell Distribution Width 13.3 % (11.5-17.5); White Blood Count 10.4 K/mm3 (4.8-10.8)
[2023-08-26 07:14] LABS: Alanine Aminotransferase 25 U/L (12-78); Albumin Level 3.8 g/dl (3.5-5.0); Albumin/Globulin Ratio 1.3 (1.1-1.8); Alkaline Phosphatase 46 U/L (38-126); Anion Gap 12.4 mEq/L (5-15); Aspartate Amino Transferase 25 U/L (17-59); Bilirubin,Total 0.8 mg/dl (0.2-1.3); Blood Urea Nitrogen 13 mg/dl (9-20); Calcium 8.4 mg/dl (8.4-10.2); Carbon Dioxide 25 mmol/L (22.0-30.0); Chloride 104 mmol/L (98-107); Creatinine Clearance Estimated 259 mL/min (50-200); Estimated Glomerular Filt Rate 121 ml/min (>60); GFR (African American) 146 ML/MIN (>60); Globulin 2.9 g/dL (1.3-3.2); Glucose 116 mg/dl (74-100); Potassium 3.4 mmoL/L (3.5-5.1); Sodium 138 mmol/L (136-145); Total Protein,Serum 6.7 g/dl (6.3-8.2)
[2023-08-26 07:38] LABS: Hemoglobin A1C 5.3 % (4.0-6.0)
[2023-08-26 08:00] VITALS: BP 127/63; PULSE 83; RESP 18; TEMP 36.7; O2SAT 96
--- NOTE | 2023-08-26 08:20 | EXP.PHA.CONS ---
Pharmacy Consult Date: 08/26/23 Time: 08:20 Referring provider: DR HARRIS Reason for Consult:: VANCOMYCIN DOSING CONSULT Allergies Allergy/AdvReac Type Severity Reaction Status Date / Time No Known Allergies Allergy Verified 08/16/23 15:26 Home Medications Medication Instructions Recorded Confirmed Type buprenorphine 8 mg-naloxone 2 mg 1 tab sublingual DAILY 10/01/21 08/26/23 History sublingual tablet albuterol sulfate 90 mcg/actuation 2 puff inhalation Q4-6H PRN 11/29/22 08/26/23 Rx aerosol inhaler shortness of breath or wheezing #8.5 grams budesonide-formoterol HFA 80 1 puff inhalation DAILY Breathing 11/29/22 08/26/23 Rx mcg-4.5 mcg/actuation aerosol problems #10.2 grams inhaler famotidine 20 mg tablet 20 mg PO DAILY #90 tabs 02/21/23 08/26/23 Rx ipratropium 20 mcg-albuterol 100 See Rx Instructions .Route 05/17/23 08/26/23 Rx mcg/actuation mist for inhalation .COMPLEX #4 grams (Combivent Respimat) gabapentin 800 mg tablet 800 mg PO QID Pain #120 tabs 08/16/23 08/26/23 Rx phentermine 37.5 mg tablet 37.5 mg PO DAILY 30 days #30 tabs 08/16/23 08/26/23 Rx (Adipex-P) sildenafil 100 mg tablet 100 mg PO DAILY #30 tabs 08/16/23 08/26/23 Rx New Prescriptions to Start Prescriptions: Height: 1.96 m Weight: 140.341 kg Laboratory Results:: Laboratory Results - last 24 hr 08/25/23 00:18: WBC 9.9, RBC 3.92 L, Hgb 12.6 L, Hct 35.0 L, MCV 89.3, MCH 32.2 H, MCHC 36.0 H, RDW 13.0, Plt Count 226, MPV 7.7, Neut % (Auto) 64.6, Lymph % (Auto) 27.5, [place] % (Auto) 6.1, Eos % (Auto) 1.6, Baso % (Auto) 0.3, Neut # (Auto) 6.4, Lymph # (Auto) 2.7, [place] # (Auto) 0.6, Eos # (Auto) 0.2, Baso # (Auto) 0.0 08/25/23 21:37: PT 10.7, INR 0.99, Sodium 139, Potassium 3.1 L, Chloride 102, Carbon Dioxide 26, Anion Gap 14.1, BUN 16, Creatinine 0.80, Estimated Creat Clear 218, Estimated GFR 104, Est GFR ( Amer) 125, Glucose 125 H, Calcium 8.8, Total Bilirubin 0.7, AST 31, ALT 31, Alkaline Phosphatase 49, Total Creatine Kinase 264 H, Total Protein 7.3, Albumin 4.4, Globulin 2.9, Albumin/Globulin Ratio 1.5, Procalcitonin 0.060 08/25/23 22:31: VBG pH 7.38, VBG pCO2 44.1, VBG pO2 72.0 H, VBG HCO3 25.2, VBG Total CO2 26.6, VBG O2 Saturation 93.9 H, VBG Base Excess 0.0 08/26/23 03:35: Lactate 0.7 08/26/23 06:35: WBC 10.4, RBC 3.93 L, Hgb 12.5 L, Hct 36.0 L, MCV 91.7, MCH 31.7 H, MCHC 34.6, RDW 13.3, Plt Count 228, MPV 7.5, Neut % (Auto) 70.8, Lymph % (Auto) 19.9, [place] % (Auto) 7.2, Eos % (Auto) 1.9, Baso % (Auto) 0.2, Neut # (Auto) 7.3, Lymph # (Auto) 2.1, [place] # (Auto) 0.8, Eos # (Auto) 0.2, Baso # (Auto) 0.0, Sodium 138, Potassium 3.4 L, Chloride 104, Carbon Dioxide 25, Anion Gap 12.4, BUN 13, Creatinine 0.70, Estimated Creat Clear 259, Estimated GFR 121, Est GFR ( Amer) 146, Glucose 116 H, Hemoglobin A1c 5.3, Calcium 8.4, Total Bilirubin 0.8, AST 25, ALT 25, Alkaline Phosphatase 46, Total Protein 6.7, Albumin 3.8 D, Globulin 2.9, Albumin/Globulin Ratio 1.3 Medical History: Medical History (Updated 08/26/23 @ 06:20 by Joaquin Keating APRN) BMI 40.0-44.9, adult Left otitis media Otitis externa Otitis media Assessment and Plan Assessment and plan all Dx Assessment and Plan for all problems:: Pharmacokinetic dosing service Objective: Age: 47 yo Serum creatinine: 0.7 mg/dL Height: 77.2 Inches Weight (kg): 140.341 Diagnosis: CELLULITIS Assessment: IBW (kg): 89.56 Dosing wt(kg): 140.341 Estimated Creatinine clearance (ml/min): 130 Clearance limited to 130 ml/min to reduce risk of overdosing. CRCL method: Cockcroft and Gault using ibw(default). Drug selected: Vancomycin Loading dose (mg): 2500 MG Vd (liters): 98.2 (factor used: 0.7 L/kg) Joaquín (hr-1): 0.112 Half life (hrs): 6.19 CLvanco=?? 10.998 L/hr Recommended dose: 2000 mg Interval: 8 hrs Infusion time (hrs): 2.0 Predicted pea
--- NOTE | 2023-08-26 09:57 | EXP.SURG.CON ---
History of Present Illness *Admission Date: 08/26/23 *Reason for visit:: Right lower extremity abscess *History of present illness: Forwarded from admission H&P: This is a 47 yo M obese, with PMHx of GERD, peripheral neuropathy, Asthma who presented with a chief complaint of pain and redness in their leg, which began yesterday evening while changing the alternator on their truck. The patient reports that the pain worsened throughout the day, describing it as a burning sensation and feeling like lightning and striking. The patient denies any injury to the leg but mentions a scab on the knee from rubbing it on the floor while installing a floating floor. The pain is reported to be present throughout the entire leg, stopping just below the knee. The patient has a history of a staph infection in the same leg back in 2007, which required drainage and a hospital stay of eight to nine days. The patient reports no numbness or tingling, only a burning sensation and throbbing pain. Admitted for further treatment. [facility] Disclaimer: The information contained in this section may have been updated after the patient was seen, as this information can be updated by other users. Medical History (Updated 08/26/23 @ 09:58 by David Vasquez MD) BMI 40.0-44.9, adult Left otitis media Otitis externa Otitis media Social History (Updated 08/26/23 @ 02:06 by Rolf Spring RN) Smoking Status: Current every day smoker second hand exposure: Yes alcohol intake: never substance use type: painkillers current occupational status: employed Travel in the last 8 weeks: None household members: spouse current occupation: [employer] current occupational exposures/hazards: No caffeine: Yes Meds Home Medications and Allergies Home Medications Medication Instructions Recorded Confirmed Type buprenorphine 8 mg-naloxone 2 mg 1 tab sublingual DAILY 10/01/21 08/26/23 History sublingual tablet albuterol sulfate 90 mcg/actuation 2 puff inhalation Q4-6H PRN 11/29/22 08/26/23 Rx aerosol inhaler shortness of breath or wheezing #8.5 grams budesonide-formoterol HFA 80 1 puff inhalation DAILY Breathing 11/29/22 08/26/23 Rx mcg-4.5 mcg/actuation aerosol problems #10.2 grams inhaler famotidine 20 mg tablet 20 mg PO DAILY #90 tabs 02/21/23 08/26/23 Rx ipratropium 20 mcg-albuterol 100 See Rx Instructions .Route 05/17/23 08/26/23 Rx mcg/actuation mist for inhalation .COMPLEX #4 grams (Combivent Respimat) gabapentin 800 mg tablet 800 mg PO QID Pain #120 tabs 08/16/23 08/26/23 Rx phentermine 37.5 mg tablet 37.5 mg PO DAILY 30 days #30 tabs 08/16/23 08/26/23 Rx (Adipex-P) sildenafil 100 mg tablet 100 mg PO DAILY #30 tabs 08/16/23 08/26/23 Rx New Prescriptions to Start Prescriptions: Allergies Allergy/AdvReac Type Severity Reaction Status Date / Time No Known Allergies Allergy Verified 08/16/23 15:26 Exam (Inpt) Vital signs and Labs for Last 24 Hours: Temp Pulse Resp BP Pulse Ox O2 Del Method 98.1 F 83 18 127/63 96 Room Air 08/26/23 08:00 08/26/23 08:00 08/26/23 08:00 08/26/23 08:00 08/26/23 08:00 08/26/23 08:00 Laboratory Results - last 24 hr 08/25/23 00:18: WBC 9.9, RBC 3.92 L, Hgb 12.6 L, Hct 35.0 L, MCV 89.3, MCH 32.2 H, MCHC 36.0 H, RDW 13.0, Plt Count 226, MPV 7.7, Neut % (Auto) 64.6, Lymph % (Auto) 27.5, [place] % (Auto) 6.1, Eos % (Auto) 1.6, Baso % (Auto) 0.3, Neut # (Auto) 6.4, Lymph # (Auto) 2.7, [place] # (Auto) 0.6, Eos # (Auto) 0.2, Baso # (Auto) 0.0 08/25/23 21:37: PT 10.7, INR 0.99, Sodium 139, Potassium 3.1 L, Chloride 102, Carbon Dioxide 26, Anion Gap 14.1, BUN 16, Creatinine 0.80, Estimated Creat Clear 218, Estimated GFR 104, Est GFR ( Amer) 125, Glucose 125 H, Calcium 8.8, Total Bilirubin 0.7, AST 31, ALT 31, Alkaline Phosphatase 49, Total Creatine Kinase 264 H, Total Protein 7.3, Albumin 4.4, Globulin 2.9, Albumin/Globulin Ratio 1.5, Procalcitonin 0.060 08/25/23 22:31: VBG
--- NOTE | 2023-08-26 11:14 | HMH.PHAINT1 ---
Pharmacy Intervention Comments: MEDICATION RECONCILIATION COMPLETE USING LIST FROM MOST RECENT MD OFFICE VISIT AND EXTERNAL PHARMACY FILL HISTORY.
[2023-08-26 15:56] VITALS: BP 148/72; PULSE 77; RESP 18; TEMP 36.7; O2SAT 96
--- NOTE | 2023-08-26 18:23 | PC.NURSE ---
NO ACUTE CHANGES THIS SHIFT. PAIN MEDICINE X2 PER MAR WITH GOOD EFFECTIVENESS. AMBULATING IN ROOM INDEPENDENTLY.
[2023-08-26 20:00] VITALS: BP 160/84; PULSE 76; RESP 18; TEMP 36.6; O2SAT 99
[2023-08-27] VITALS (16 sets, daily range): BP systolic 118–160; BP diastolic 54–92; PULSE 59–79; RESP 12–22; TEMP 36.4–37; O2SAT 93–100; BMI 37.0
[2023-08-27 06:47] LABS: MANUAL DIFFERENTIAL MANUAL DIFFERENTIAL (MANUAL DIFF)
[2023-08-27 06:52] LABS: Basophils % 0.3 % (0.1-2.0); Eosinophils # 0.3 K/mm3 (0.0-0.4); Eosinophils % 2.6 % (0.1-12.0); Lymphocytes # 2.1 K/mm3 (0.7-4.5); Lymphocytes % 21.6 % (10-50); Mean Corpuscular HGB Conc 35.2 g/dL (31.8-35.4); Mean Corpuscular Hemoglobin 32.2 pg (27.0-31.2); Mean Corpuscular Volume 91.3 fl (80-94); Mean Platelet Volume 7.7 fl (7.4-10.4); Monocytes # 0.5 K/mm3 (0.1-1.0); Monocytes % 5.5 % (1.7-9.3); Neutrophils # 6.9 K/mm3 (1.8-7.8); Neutrophils % 70.1 % (37.0-80.0); Platelet Count 227 K/mm3 (142-424); Red Blood Count 4.05 M/mm3 (4.60-6.20); Red Cell Distribution Width 13.3 % (11.5-17.5); White Blood Count 9.8 K/mm3 (4.8-10.8)
[2023-08-27 07:01] LABS: Blood Urea Nitrogen 13 mg/dl (9-20); Calcium 8.7 mg/dl (8.4-10.2); Carbon Dioxide 28 mmol/L (22.0-30.0); Chloride 104 mmol/L (98-107); Creatinine Clearance Estimated 263 mL/min (50-200); Estimated Glomerular Filt Rate 121 ml/min (>60); GFR (African American) 146 ML/MIN (>60); Glucose 103 mg/dl (74-100); Sodium 141 mmol/L (136-145)
[2023-08-27 07:24] LABS: Eosinophils % 3 % (0-3); Lymphocytes % 21 % (10-50); Monocytes % 5 % (2-9); Neutrophils % 71 % (42-76); Platelet Estimate Normal; RBC Morphology Normal; Total Cells Counted 100
--- NOTE | 2023-08-27 07:33 | EXP.SURG.PN ---
Subjective Patient reports: no new complaints Exam Data for Last 24 hours Vital signs and Labs for Last 24 Hours: Temp Pulse Resp BP Pulse Ox O2 Del Method 98.0 F 70 22 145/86 H 96 Room Air 08/27/23 04:00 08/27/23 04:00 08/27/23 04:00 08/27/23 04:00 08/27/23 04:00 08/27/23 06:19 Laboratory Results - last 24 hr 08/26/23 06:35: Hemoglobin A1c 5.3 08/27/23 06:40: WBC 9.8, RBC 4.05 L, Hgb 13.0 L, Hct 37.0 L, MCV 91.3, MCH 32.2 H, MCHC 35.2, RDW 13.3, Plt Count 227, MPV 7.7, Neut % (Auto) 70.1, Lymph % (Auto) 21.6, [place] % (Auto) 5.5, Eos % (Auto) 2.6, Baso % (Auto) 0.3, Neut # (Auto) 6.9, Lymph # (Auto) 2.1, [place] # (Auto) 0.5, Eos # (Auto) 0.3, Baso # (Auto) 0.0, Total Counted 100, Neutrophils % (Manual) 71, Lymphocytes % (Manual) 21, Monocytes % (Manual) 5, Eosinophils % (Manual) 3, Platelet Estimate Normal, RBC Morphology Normal, Sodium 141, Potassium 4.0, Chloride 104, Carbon Dioxide 28, Anion Gap 13.0, BUN 13, Creatinine 0.70, Estimated Creat Clear 263, Estimated GFR 121, Est GFR ( Amer) 146, Glucose 103 H, Calcium 8.7 I & O for Last 24 hours: Intake & Output 08/24/23 08/25/23 08/26/23 08/27/23 12:59 12:59 11:59 11:59 Intake Total 1405 / 1405 Output Total 0 / 0 Balance 1405 / 1405 Weight 314 lb Constitutional Constitutional: no acute distress *Routine Respiratory Exam Respiratory: Absent respiratory distress *Routine Cardiovascular Exam Cardiovascular: Absent tachycardia *Routine Extremities Exam Comments: Right lower extremity abscess unchanged Progress Note: A&P Assessment and plan (1) Abscess of right lower extremity: Status: Acute Assessment and plan: Incision and drainage plan for later today I have discussed the risks and benefits including, but not limited to: Bleeding Infection Damage to surrounding tissue Inherent risks of sedation The patient agrees to proceed.
[2023-08-27 08:50] LABS: Vancomycin,Trough 21.6 ug/mL (5.0-10.0)
--- NOTE | 2023-08-27 10:02 | P.PNANES_ITS ---
[facility] Disclaimer: The information contained in this section may have been updated after the patient was seen, as this information can be updated by other users. Medical History (Updated 08/26/23 @ 09:58 by David Vasquez MD) BMI 40.0-44.9, adult Left otitis media Otitis externa Otitis media Social History (Updated 08/26/23 @ 02:06 by Rolf Spring RN) Smoking Status: Current every day smoker second hand exposure: Yes alcohol intake: never substance use type: painkillers current occupational status: employed Travel in the last 8 weeks: None household members: spouse current occupation: [employer] current occupational exposures/hazards: No caffeine: Yes [facility] Anesthesia Checklist Patient Identification Patient Identification: Arm Band and Verbal (Name & ) Structural Data Admitted From: Inpatient Planned Operative Procedure/s: I&D Right leg abscess Consent for Planned Operative Procedure(s) Verified: Yes Verified Documents: Surgical Consent and History and Physical NPO Status Verified Time NPO: 21:00 Chart Verification Results Verified: CBC and BMP Additional verifications Patient : No Anesthesia Reactions: No Hx Blood Transfusions: No Blood Transfusion Reaction: No Cephalosporin Allergy: No Previous Colonoscopy: No Cardiovascular Assessment Heart Sounds: S1 & S2 Pulse Rhythm: Irregular Peripheral Edema: No Airway Assessment Mallampati Score:: Class III C-Spine Mobility Assessed: Yes TMJ Mobility Assessed: Yes Dentition: Poor Dentition (Nothing loose per pt.) Neurological Assessment Level of Consciousness: Awake, Alert, Appropriate and Follows Commands Hx Seizures: No Numbness or tingling in extremities: No Anesthesia Plan Anesthesia Risk discussed: Yes Anesthesia Plan: Verified ASA Class: III Anesthesia Type: General
--- NOTE | 2023-08-27 10:24 | EXP.OP.NOTE ---
Date of procedure: 08/27/23 Pre-op Diagnosis:: Right lower extremity abscess Post-op Diagnosis:: Same Procedure performed:: Incision and drainage of right lower extremity abscess Surgeon:: David Vasquez MD Anesthesia: local and LMA Estimated blood loss (mL): 5 Operative findings:: Pockets of purulent surrounded by necrotic tissue Operative note:: After informed consent was obtained the patient was taken to the operating room and maintained in the supine position. General anesthesia with laryngeal mask airway was achieved. His lower right leg was prepped and draped in a sterile fashion. An elliptical incision was made around the central portion of the lesion. A pocket of purulence was encountered. Fluid was obtained for Gram stain/culture. Electrocautery was utilized to excise the central (necrotic) portion of the wound and to achieve hemostasis. The wound was packed open. Dressings were applied and patient was transferred to recovery after removal of his laryngeal mask airway. Condition: stable Disposition: PACU Specimens:: Fluid for Gram stain/culture Complications:: No immediate
--- NOTE | 2023-08-27 11:36 | P.PNANES_ITS ---
[facility] Anesthesia Record Part I Anesthesia Record I Intake, IV Amount: 200 Hydration: Adequate Estimated blood loss (mL): 15 Urine output (mL): 0 Blood Products used (#): none Blood Pressure: 122/54 SaO2: 93 Pulse Rate: 79 Airway Patency: Patent Respiratory Rate: 18 Temperature: 97.6 F Patient is:: Awake, Drowsy and Stable Stable to PACU at:: 10:35
--- NOTE | 2023-08-27 15:22 | EXP.DC.SUM ---
General Admission date:: 08/26/23 Discharge date: 08/27/23 HPI HPI HPI: This is a 47 yo M obese, with PMHx of GERD, peripheral neuropathy, Asthma who presented with a chief complaint of pain and redness in their leg, which began yesterday evening while changing the alternator on their truck. The patient reports that the pain worsened throughout the day, describing it as a burning sensation and feeling like lightning and striking. The patient denies any injury to the leg but mentions a scab on the knee from rubbing it on the floor while installing a floating floor. The pain is reported to be present throughout the entire leg, stopping just below the knee. The patient has a history of a staph infection in the same leg back in 2007, which required drainage and a hospital stay of eight to nine days. The patient reports no numbness or tingling, only a burning sensation and throbbing pain. Admitted for further treatment. Hospital Course Hospital Course Hospital Course: 47 yo M obese, with PMHx of GERD, peripheral neuropathy, Asthma who presented with a chief complaint of pain and redness in their leg. patient with previous Hx of staph infection required hospitalization. Upon arrival BC was drawn. patient was placed on IV vanco and zoxyn. CT of the leg was obtained. significant for soft tissue swelling. Findings are consistent with cellulitis. Labs work are remarkable for moderate hypokalemia. discussed with ER provider for admission. Patient initiated on IV antibiotics, improvement in erythema. Taken for I&D on day of discharge. Tolerated well. Stable for discharge home with oral antibiotics to complete therapy. Problems addressed during hospitalization as follows: - Right lower leg cellulitis/abscess Admit to [facility] for management. Started on vancomycin and Zosyn given history of staph. Surgery was consulted, patient taken for I&D on 08/27. We will continue antibiotics with oral Bactrim twice daily. Patient remained afebrile and had normal white count of 9.8 on day of discharge. Follow-up with surgery in the coming weeks for reevaluation of wound. Tylenol for pain management. Dressing changes daily with clean dry dressing. - Hypokalemia Low on admission, replaced during admission. Potassium 4.0 on discharge. -Neuropathy: Hx of neuropathy will predispose to unnoticed trauma that may lead to secondary infection. Continued home gabapentin at discharge Asthma: Continue home regimen. Spent 40 minutes in discharge counseling, documentation, coordination of care and discussion with subspecialist, and direct care with patient. Exam Data for Last 24 hours Vital signs and Labs for Last 24 Hours: Temp Pulse Resp BP Pulse Ox O2 Del Method 97.7 F 68 20 145/87 H 98 Room Air 08/27/23 15:04 08/27/23 14:45 08/27/23 14:45 08/27/23 14:45 08/27/23 14:45 08/27/23 14:53 Laboratory Results - last 24 hr 08/27/23 06:40: WBC 9.8, RBC 4.05 L, Hgb 13.0 L, Hct 37.0 L, MCV 91.3, MCH 32.2 H, MCHC 35.2, RDW 13.3, Plt Count 227, MPV 7.7, Neut % (Auto) 70.1, Lymph % (Auto) 21.6, [place] % (Auto) 5.5, Eos % (Auto) 2.6, Baso % (Auto) 0.3, Neut # (Auto) 6.9, Lymph # (Auto) 2.1, [place] # (Auto) 0.5, Eos # (Auto) 0.3, Baso # (Auto) 0.0, Total Counted 100, Neutrophils % (Manual) 71, Lymphocytes % (Manual) 21, Monocytes % (Manual) 5, Eosinophils % (Manual) 3, Platelet Estimate Normal, RBC Morphology Normal, Sodium 141, Potassium 4.0, Chloride 104, Carbon Dioxide 28, Anion Gap 13.0, BUN 13, Creatinine 0.70, Estimated Creat Clear 263, Estimated GFR 121, Est GFR ( Amer) 146, Glucose 103 H, Calcium 8.7, Vancomycin Trough 21.6 H I & O for Last 24 hours: Intake & Output 08/25/23 08/26/23 08/26/23 08/27/23 00:59 00:59 23:59 23:59 Intake Total 440 / 440 Output Total 0 / 0 Balance 440 / 440 Weight 142.428 kg Constitutional Constitutional: no acute distress and obese *Routine HEENT Exam Head: Present normocephalic Eye: Present EOMI an
--- NOTE | 2023-08-28 07:01 | EXP.ANES.II ---
[facility] Anesthesia Record Part II Anesthesia Record Part II Discharge Time: 11:00 Destination: Medical Surgical Department PACU nurse assessment reviewed?: Yes Patient Condition:: Good Anesthesia Complications:: None Swallowing reflex intact?: Yes Airway Patency: Patent Cyanosis?: No Blood Pressure: 122/54 SaO2: 93 Respiratory Rate: 18 Pulse Rate: 79 Temperature: 97.6 F Mental Status: Alert & Oriented Pain level:: 0 Nausea and/or vomitting:: None Intake, IV Amount: 200 Hydration: Adequate
[2023-08-28 07:04] VITALS: BP 122/54; PULSE 79; RESP 18; TEMP 36.4; O2SAT 93
--- NOTE | 2023-08-30 13:19 | CARE MANAGER ---
Attempted to contact patient x 2 related to hospital discharge. Left VM message. PREM Murray
== END 2023-08-27 16:26 | disposition home or self-care (01) ==
LOC: 2ND 08-26 01:11 → ER 08-26 01:11
PROVIDERS: Nurse Practitioner Family; Surgery; Admitting Provider Internal Medicine; Emergency Provider Emergency Medicine; PCP Nurse Practitioner Family; Visit Provider Internal Medicine
DX: L02.415 Cutaneous abscess of right lower limb (principal); E87.6 Hypokalemia; L03.115 Cellulitis of right lower limb; K21.9 Gastro-esophageal reflux disease without esophagitis; J45.30 Mild persistent asthma, uncomplicated; Z23 Encounter for immunization; F17.210 Nicotine dependence, cigarettes, uncomplicated
CPT/HCPCS: 10061; 36415; 73701; 80048; 80053; 80202; 82550; 82803; 83036; 83605; 84145; 85007; 85014; 85018; 85025; 85048; 85049; 85610; 87040; 87070; 87075; 87205; 90715; 99285; G0378; J0574; J0690; J2543; J3370; Q9967

== ENCOUNTER 2023-12-05 22:01 | Outpatient (CLI) | payer BC, SELFPAY | END 2023-12-05 23:59 | LOC: LAB.DROPOF 22:02 | PROVIDERS: PCP Nurse Practitioner Family; Visit Provider Nurse Practitioner Family | DX: N39.0 Urinary tract infection, site not specified (principal) | CPT/HCPCS: 87086 ==

== ENCOUNTER 2023-12-10 12:29 | Emergency (ER) | payer BC, SELFPAY ==
[2023-12-10 12:30] VITALS: BP 156/95; PULSE 77; RESP 18; TEMP 36.7; O2SAT 99; BMI 37.9
--- NOTE | 2023-12-10 12:57 | PC.NURSE ---
DR WELLER AT BEDSIDE
[2023-12-10 13:02] LABS: Basophils % 0.2 % (0.1-2.0); Eosinophils % 0.2 % (0.1-12.0); Hematocrit 39.2 % (42.0-52.0); Hemoglobin 13.6 g/dL (14.1-18.0); Lymphocytes # 1.8 K/mm3 (0.7-4.5); Lymphocytes % 18.2 % (10-50); Mean Corpuscular HGB Conc 34.8 g/dL (31.8-35.4); Mean Corpuscular Hemoglobin 31.2 pg (27.0-31.2); Mean Corpuscular Volume 89.8 fl (80-94); Monocytes # 0.3 K/mm3 (0.1-1.0); Monocytes % 2.7 % (1.7-9.3); Neutrophils # 7.8 K/mm3 (1.8-7.8); Neutrophils % 78.8 % (37.0-80.0); Platelet Count 276 K/mm3 (142-424); Red Blood Count 4.36 M/mm3 (4.60-6.20); Red Cell Distribution Width 13.6 % (11.5-17.5); White Blood Count 9.9 K/mm3 (4.8-10.8)
--- NOTE | 2023-12-10 13:02 | CT_ITS ---
FINAL REPORT TECHNIQUE: Axial imaging of the lumbar spine was obtained without contrast. Reformatted images were also obtained and reviewed.This study was performed with techniques to keep radiation doses as low as reasonably achievable, (ALARA). Individualized dose reduction techniques using automated exposure control or adjustment of mA and/or kV according to the patient's size were employed. CLINICAL HISTORY: L lower back pain FINDINGS: There is no acute fracture or subluxation. The vertebra are normal height. There is moderate disc space narrowing at L1-2, L4-5 and L5-S1. There is no malalignment. Facets are properly aligned. Prevertebral soft tissues unremarkable. T12-L1: Unremarkable. L1-2: Unremarkable. L2-3:: Moderate left posterolateral disc protrusion with moderate to high-grade left neuroforaminal narrowing. L3-4: Moderate diffuse disc bulge with endplate hypertrophy and moderate bilateral neuroforaminal narrowing. L4-5: Moderate diffuse disc bulge with endplate hypertrophy and moderate bilateral neuroforaminal narrowing. L5-S1: Moderate diffuse disc bulge with endplate hypertrophy and moderate to high-grade bilateral neuroforaminal narrowing. IMPRESSION: No acute bony abnormality. Multilevel degenerative disc disease with moderate to high-grade neuroforaminal narrowing as above. Reviewed, Interpreted and Dictated by Jeffrey Negrete MD Transcribed by Beatris Dumont Authenticated and [facility]
--- NOTE | 2023-12-10 13:04 | ED_ITS ---
Discharge Plan Disposition Patient Disposition: Home, Self-Care Condition: Fair Prescriptions Prescriptions: New methocarbamol 750 mg tablet 750 mg PO TID PRN (Reason: pain) 5 Days Qty: 15 0RF lidocaine 5 % adhesive patch,medicated 1 patch topical DAILY Qty: 15 0RF Rx Instructions: leave on most painful area for up to 12 hrs oxycodone-acetaminophen [Percocet] 5-325 mg tablet 1 tab PO Q8H PRN (Reason: pain) 2 Days Qty: 6 0RF No Action budesonide-formoterol 80-4.5 mcg/actuation HFA aerosol inhaler 1 puff INHALATION DAILY Qty: 10.2 1RF gabapentin 800 mg tablet 800 mg PO TID Qty: 90 2RF naproxen 500 mg tablet 500 mg PO BID Qty: 30 0RF prednisone 20 mg tablet 20 mg PO BID 5 Days Qty: 10 0RF buprenorphine-naloxone 8-2 mg tablet, sublingual 2 tab SUBLINGUAL DAILY famotidine 20 mg Tablet 20 mg PO DAILY albuterol sulfate 90 mcg/actuation Hfa Aerosol Inhaler 2 puff INHALATION Q4HP PRN (Reason: Shortness Of Breath Or Wheezing) sildenafil 100 mg tablet 100 mg PO DAILY Referrals Follow up/Referrals: Will Rock APRN [Primary Care Provider] - See instructions Activity Restrictions/Add. Instructions Additional Instructions/Restrictions: You have been evaluated in the ED for your complaints. You may follow-up with your PCP in the next 3 to 5 days. Please return to ED for any new or worsening symptoms. As discussed, please continue taking your prednisone that was prescribed to you by your primary care provider. I have written for prescription for Robaxin as well as lidocaine patches to further assist. You may also take ibuprofen 800 mg every 5-6 hours and 1000 mg of Tylenol every 5-6 hours as needed. Clinical Impressions Clinical Impression: Left sided sciatica, Low back pain Stand Alone Forms Stand Alone Forms: Work/School Release Instructions Patient Instructions: DI for Back Pain With Sciatica Discharge ED Provider: Aiden Joiner Adult [facility] General Chief complaint: PAIN Stated complaint: back pain, L side, poss kidney stones Time Seen by Provider: 12/10/23 12:55 Mode of Arrival: Ambulatory Source of Information: Patient Limitations: No Limitations Description of Symptoms (Recalled from ER Triage Doc. by RN): Patient complaint of left sided flank pain for 1 week. States he went to his PCP who gave him some shots and checked his urine. States the pain became unbearable today. History of Present Illness HPI narrative: 48-year-old male with past medical history significant for GERD, left-sided sciatica, presents today for evaluation concerning left lower back pain rating down to his left lower extremity that has been worsening over the past week. He denies having any abdominal pain, dysuria, hematuria. 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 Denies any new injuries. Denies having any fevers, chills, chest pain, shortness of breath, nausea, vomiting. States that he has been taking gabapentin with minimal relief. He has no further complaints. Related Data Home Medications Medication Instructions Recorded Confirmed buprenorphine 8 mg-naloxone 2 mg 2 tab sublingual DAILY WITHDRAWAL 10/01/21 12/05/23 sublingual tablet albuterol sulfate 90 mcg/actuation 2 puff inhalation Q4HP PRN 08/26/23 12/05/23 aerosol inhaler Shortness Of Breath Or Wheezing famotidine 20 mg tablet 20 mg PO DAILY Acid Reflux 08/26/23 12/05/23 sildenafil 100 mg tablet 100 mg PO DAILY ERECTILE 08/26/23 12/05/23 DYSFUNCTION Previous Rx's Medication Instructions Recorded budesonide-formoterol HFA 80 1 puff inhalation DAILY Breathing 11/29/22 mcg-4.5 mcg/actuation aerosol problems #10.2 grams inhaler gabapentin 800 mg tablet 800 mg PO TID Pain #90 tabs 12/05/23 naproxen 500 mg tablet 500 mg PO BID #30 tabs 12/05/23 prednisone 20 mg tablet 20 mg PO BID 5 days #10 tabs 12/05/23 lidocaine 5 % topical patch 1 patch topical DAILY #15 ea 12/10/23 methocarbamol 750 mg tablet 750 mg PO TID PRN pain 5 days #15 12/10/23 tabs oxycodone-acetaminophen 5 mg-325 1 tab PO Q8H PRN pain 2 days #6 12/10/23 mg tablet (Percocet) tabs Allergies Allergy/AdvReac Type Severity Reaction Status Date / Time No Known Allergies Allergy Verified 12/05/23 15:58 [facility] Disclaimer: The information contained in this section may have been updated after the patient was seen, as this information can be updated by other users. Medical History (Updated 12/10/23 @ 15:30 by Aiden Joiner DO) BMI 40.0-44.9, adult Left otitis media Otitis externa Otitis media Social History (Updated 08/26/23 @ 02:06 by Rolf Spring RN) Smoking Status: Never smoker second hand exposure: Yes alcohol intake: never substance use type: painkillers current occupational status: employed Travel in the last 8 weeks: None household members: spouse current occupation: [employer] current occupational exposures/hazards: No caffeine: Yes ROS Obtained: Yes All systems reviewed & no additional complaints except as documented Physical Exam General General appearance: alert and in no apparent distress Head Head exam: atraumatic and normocephalic Eye Eye exam: Present normal appearance, PERRL and EOMI ENT ENT exam: Present normal oropharynx and mucous membranes moist Neck Neck exam: Present full ROM; Absent meningismus Respiratory Respiratory exam: Absent respiratory distress, wheezes, stridor or accessory muscle use Cardiovascular Cardiovascular exam: Present normal rhythm Abdominal Exam Abdominal exam: Present soft; Absent distention, tenderness, guarding, rebound or rigidity Back Exam Back exam: Present normal inspection, tenderness and paraspinal tenderness (Moderate left lower lumbar paraspinal tenderness to palpation); Absent CVA tenderness (R), CVA tenderness (L), vertebral tenderness or straight leg raise (L) Neurological Exam Neurological exam: Present alert, oriented X3 and CN II-XII intact; Absent motor sensory deficit Psychiatric Psychiatric exam: Present normal affect and normal mood Skin Skin exam: Present warm and dry Medical Decision Making Medical Records Medical records reviewed: Yes I reviewed the patient's medical records. Jules Inquiry Pt receiving controlled substance: No Jules was queried for this patient: No Vital Signs: 12/10/23 12:30 Temperature 98.1 F Temperature Source Oral Pulse Rate [Radial] 77 Respiratory Rate 18 Blood Pressure [Right Arm] 156/95 H Blood Pressure Mean [Right Arm] 115 Blood Pressure Source [Right Arm] Automatic Cuff Blood Pressure Position [Right Arm] Sitting 02 Sat by Pulse Oximetry 99 Oxygen Delivery Method Room Air Lab Data Lab Results 12/10/23 12:47: WBC 9.9, RBC 4.36 L, Hgb 13.6 L, Hct 39.2 L, MCV 89.8, MCH 31.2, MCHC 34.8, RDW 13.6, Plt Count 276, MPV 8.0, Neut % (Auto) 78.8, Lymph % (Auto) 18.2, Owen % (Auto) 2.7, Eos % (Auto) 0.2, Baso % (Auto) 0.2, Neut # (Auto) 7.8, Lymph # (Auto) 1.8, Owen # (Auto) 0.3, Eos # (Auto) 0.0, Baso # (Auto) 0.0, Sodium 136, Potassium 4.6, Chloride 102, Carbon Dioxide 32 H, Anion Gap 6.6, BUN 17, Creatinine 0.80, Estimated Creat Clear 232, Estimated GFR 103, Est GFR (A frican Amer) 125, Glucose 113 H, Calcium 9.3, Total Bilirubin 0.5, AST 38, ALT 40, Alkaline Phosphatase 62, Total Protein 7.9, Albumin 4.5, Globulin 3.4 H, Albumin/Globulin Ratio 1.3, Urine Color Yellow, Urine Appearance Clear, Urine pH 6.0, Ur Specific [place] 1.020, Urine Protein Negative, Urine Glucose (UA) Negative, Urine Ketones Negative, Urine Blood Negative, Urine Nitrate Negative, Urine Bilirubin Negative, Urine Urobilinogen 0.2, Ur Leukocyte Esterase Negative, Urine RBC None, Urine WBC Occasional, Ur Squamous Epith Cells Occasional, Urine Bacteria Trace 12/10/23 12:47 12/10/23 12:47 Orders (Tests/Meds): ED MEDICATIONS Generic Name Dose Route Start Last Admin Trade Name Freq PRN Reason Stop Dose Admin Lidocaine 1 each 12/10/23 13:15 12/10/23 13:08 Lidocaine 5% Transdermal Patch TP 01/09/24 13:14 1 each Q24H ILDA Administration Sodium Chloride 10 ml 12/10/23 12:53 Sodium Chloride 0.9% 10ml Flush Syringe IV 01/09/24 12:52 NEEDED PRN Maintain IV Site Discontinued Medications Generic Name Dose Route Start Last Admin Trade Name Freq PRN Reason Stop Dose Admin Acetaminophen 1,000 mg 12/10/23 13:02 12/10/23 13:08 Acetaminophen 500mg Tab PO 12/10/23 13:03 1,000 mg ONCE ONE Administration Hydromorphone HCl 1 mg 12/10/23 14:19 12/10/23 14:23 Hydromorphone 2mg/Ml Syringe IV 12/10/23 14:20 1 mg ONCE ONE Administration Ketorolac Tromethamine 30 mg 12/10/23 13:02 12/10/23 13:08 Ketorolac 30mg/Ml Vial IV 12/10/23 13:03 30 mg ONCE ONE Administration Methocarbamol 500 mg 12/10/23 13:03 12/10/23 13:08 Methocarbamol 500mg Tablet PO 12/10/23 13:04 500 mg ONCE ONE Administration Morphine Sulfate 4 mg 12/10/23 13:02 12/10/23 13:08 Morphine 4mg/Ml Syringe IV 12/10/23 13:03 4 mg ONCE ONE Administration ORDERS Category Date Time Status CT lumbar spine wo con Stat Cat Scan 12/10/23 13:02 Taken Complete Blood Count Auto Diff Stat Lab 12/10/23 12:47 Completed Comprehensive Metabolic Panel Stat Lab 12/10/23 12:47 Completed Urinalysis and Microscopic Stat Lab 12/10/23 12:47 Completed Medical Decision Narrative: 48-year-old male with past medical history significant for GERD, left-sided sciatica, presents today for evaluation concerning left lower back pain rating down to his left lower extremity that has been worsening over the past week. States that he does heavy lifting on a daily basis at his place of work. He denies having any new injuries. Denies any fevers, chills, chest pain, shortness of breath. Does not have a history of IV drug use. On assessment he was hemodynamically stable and in mild distress secondary to his pain. He did have tenderness palpation along the paraspinal musculature along the left lower lumbar spine. No midline tenderness to palpation of the C/T/L-spine. No external signs of trauma. The abdomen was soft, nondistended and nontender to palpation. Straight leg test raise performed and did not increase patient's p ain. Other physical exam findings unremarkable. No focal neurodeficits. Ambulatory. Differential diagnosis includes not limited to spondylolisthesis, sciatica, fracture, musculoskeletal pain, among others. Lab work today remarkable for a WBC of 9.9. Stable anemia with hemoglobin of 13.6, hematocrit of 39.2. CMP nonactionable. Urinalysis without signs of UTI. No blood noted. CT imaging of the L-spine with no acute bony abnormalities. Multilevel degenerative disc disease with moderate to high-grade neuroforaminal narrowing. Patient initially received 4 mg of IV morphine, 30 of IV Toradol, 500 mg Robaxin. On reassessment his pain was not much improved and so I did order for 1 mg of Dilaudid to further assist. On second reassessment his pain was slightly improved at this time. He was able to ambulate on my reassessment. Discussed with patient ED work-up and results and current plan to discharge. Provided with return to ED precautions and instructions concerning PCP follow- up. Will provide patient with prescription for Robaxin, lidocaine patch and a 2-day course of Percocet to further assist with his pain. Patient verbalized understanding and agreement with plan. Subsequently discharged hemodynamically stable and in no acute distress. Critical Care Critical Care Time Critical Care Time: No
[2023-12-10 13:05] LABS: Chloride 102 mmol/L (98-107); Potassium 4.6 mmoL/L (3.5-5.1); Sodium 136 mmol/L (136-145)
[2023-12-10 13:06] LABS: Microscopic, Urine URINE MICROSCOPIC (MICROSCOPIC)
[2023-12-10 13:07] LABS: Alanine Aminotransferase 40 U/L (12-78); Aspartate Amino Transferase 38 U/L (17-59); Blood Urea Nitrogen 17 mg/dl (9-20); Creatinine Clearance Estimated 232 mL/min (50-200); Estimated Glomerular Filt Rate 103 ml/min (>60); GFR (African American) 125 ML/MIN (>60)
[2023-12-10 13:08] LABS: Albumin Level 4.5 g/dl (3.5-5.0); Albumin/Globulin Ratio 1.3 (1.1-1.8); Alkaline Phosphatase 62 U/L (38-126); Anion Gap 6.6 mEq/L (5-15); Bilirubin,Total 0.5 mg/dl (0.2-1.3); Calcium 9.3 mg/dl (8.4-10.2); Carbon Dioxide 32 mmol/L (22.0-30.0); Globulin 3.4 g/dL (1.3-3.2); Glucose 113 mg/dl (74-100); Total Protein,Serum 7.9 g/dl (6.3-8.2)
[2023-12-10] MEDS: ACETAMINOPHEN 500MG TAB 1000 MG PO (13:08)
[2023-12-10] MEDS: LIDOCAINE 5% TRANSDERMAL PATCH 1 EACH TP (13:08)
[2023-12-10] MEDS: MORPHINE 4MG/ML SYRINGE 4 MG IV (13:08)
[2023-12-10] MEDS: METHOCARBAMOL 500MG TABLET 500 MG PO (13:08)
[2023-12-10] MEDS: KETOROLAC 30MG/ML VIAL 30 MG IV (13:08)
--- NOTE | 2023-12-10 13:18 | PC.NURSE ---
Pt gone to RAD
--- NOTE | 2023-12-10 13:25 | PC.NURSE ---
Pt returned from RAD
[2023-12-10 13:29] LABS: Appearance,Urine CLEAR (Clear); Bilirubin,Urine Negative (Negative); Blood, Urine Negative (Negative); Color,Urine YELLOW (Yellow); Glucose,Urine (UA) Negative (Negative); Ketones,Urine Negative (Negative); Leukocyte Esterase,Urine Negative (Negative); Nitrate,Urine Negative (Negative); Protein,Urine Negative (Negative); Urobilinogen,Urine 0.2 EU/dl (0.2)
--- NOTE | 2023-12-10 13:41 | PC.NURSE ---
Rounded on patient. States pain is no better. MD notified.
[2023-12-10] MEDS: HYDROMORPHONE 2MG/ML SYRINGE 1 MG IV (14:23)
--- NOTE | 2023-12-10 15:20 | PC.NURSE ---
Dr. Joiner at [facility] to update pt on results and POC
[2023-12-10 15:29] LABS: Bacteria,Urine Trace /lpf; Squamous Epithelial Cell,Urine Occasional #/hpf (0-5); WBC,Urine Occasional #/hpf (0-3)
[2023-12-10 15:37] VITALS: BP 142/76; PULSE 70; RESP 18; TEMP 36.7; O2SAT 99
== END 2023-12-10 15:38 | disposition home or self-care (01) ==
PROVIDERS: Emergency Provider Emergency Medicine; PCP Nurse Practitioner Family
DX: M54.42 Lumbago with sciatica, left side (principal); K21.9 Gastro-esophageal reflux disease without esophagitis; M51.36 Other intervertebral disc degeneration, lumbar region
CPT/HCPCS: 72131; 80053; 81001; 85025; 96374; 96375; 99285

== ENCOUNTER 2025-08-05 09:49 | Emergency (ER) | payer BC, SELFPAY ==
[2025-08-05] VITALS (8 sets, daily range): BP systolic 116–148; BP diastolic 64–79; PULSE 70–82; RESP 11–18; TEMP 36.6–36.7; O2SAT 94–99; BMI 37.9
--- NOTE | 2025-08-05 09:57 | ECG_ITS ---
APPROVED REPORT Exam: Resting ECG HR:78 bpm ECG Measurements Heart Rate [address] 176 P 69 QRSd 106 QRS 47 QT 403 T 47 QTc 436 Conclusion SINUS RHYTHM NORMAL ECG Electronically signed by : WILLIAM ROMAN, 08/06/2025 06:33:49
[2025-08-05 10:07] LABS: Coronavirus 19, PCR Not Detected (NotDetected); Influenza A, PCR Not Detected (NotDetected); Influenza B, PCR Not Detected (NotDetected)
--- NOTE | 2025-08-05 10:13 | ED_ITS ---
Discharge Plan Disposition Patient Disposition: Home, Self-Care Condition: Fair Prescriptions Prescriptions: New albuterol sulfate [Ventolin HFA] 90 mcg/actuation HFA aerosol inhaler 1 inh inhalation Q6H PRN (Reason: shortness of breath or wheezing) Qty: 6.7 0RF doxycycline monohydrate 100 mg capsule 100 mg PO BID 7 Days Qty: 14 0RF amoxicillin-pot clavulanate 875-125 mg tablet 1 tab PO BID 7 Days Qty: 14 0RF guaifenesin 600 mg tablet extended release 12hr 600 mg PO BID PRN (Reason: cough) Qty: 10 0RF No Action budesonide-formoterol 80-4.5 mcg/actuation HFA aerosol inhaler 1 puff INHALATION DAILY Qty: 10.2 1RF gabapentin 800 mg tablet 800 mg PO TID Qty: 90 3RF buprenorphine-naloxone 8-2 mg tablet, sublingual 2 tab SUBLINGUAL DAILY famotidine 20 mg tablet 20 mg PO DAILY Qty: 90 2RF sildenafil 100 mg tablet See Rx Instructions .ROUTE .COMPLEX Qty: 30 2RF Dose Instruction: TAKE ONE TABLET BY MOUTH EVERY DAY Rx Instructions: TAKE ONE TABLET BY MOUTH EVERY DAY albuterol sulfate 90 mcg/actuation Hfa Aerosol Inhaler 2 puff INHALATION Q4HP PRN (Reason: Shortness Of Breath Or Wheezing) methocarbamol 750 mg tablet 750 mg PO TID PRN (Reason: pain) 5 Days Qty: 15 0RF Referrals Follow up/Referrals: Will Rock APRN [Primary Care Provider, Family Practice] - See instructions Activity Restrictions/Add. Instructions Additional Instructions/Restrictions: You have been seen and evaluated in the emergency department. You have been diagnosed with pneumonia of both lungs. Please take both antibiotics as prescribed, do not skip doses or in antibiotics early, even if you start to feel better. You may also use albuterol inhaler every 4-6 hours as needed for shortness of breath. Additionally, you can take guaifenesin every 12 hours for congestion. Return to the ED if your symptoms worsen, if you develop persistent fevers, shaking chills, or worsening shortness of breath. Clinical Impressions Clinical Impression: Shortness of breath Bilateral pneumonia Qualifiers: Pneumonia type: due to unspecified organism Lung location: unspecified part of lung Qualified Code(s): J18.9 - Pneumonia, unspecified organism Instructions Patient Instructions: Atypical Pneumonia Print Language Print Language: Amharic Discharge ED Provider: Rehana Lucas General Chief Complaint: Shortness of Breath/Dyspnea Stated Complaint: vomiting, sweating, SOA, congestion Time Seen by Provider: 08/05/25 10:10 Mode of Arrival: Ambulatory Source of Information: Patient Description of Symptoms (Recalled from ER Triage Doc. by RN): patient states he has been short of breath with cough since sunday History of Present Illness HPI narrative: This is a 49-year-old male with past medical history of asthma, sciatica, obstructive sleep apnea, and history of vaping, recently quit 2 months ago, who presents emergency department with shortness of breath, cough, and chills. Symptoms began on Sunday. He began to experience hot and cold flashes today and generalized malaise, prompting emergency department visit. He reports shortness of breath with a productive cough. He has had intermittent blood-streaked sputum. No history of DVT or PE. He does have chest pain only with significant coughing episodes. No associated nausea, vomiting, abdominal pain, dysuria, or diarrhea. Related Data Home Medications ?Medication ?Instructions ?Recorded ?Confirmed buprenorphine 8 mg-naloxone 2 mg 2 tab sublingual MESFIN Y WITHDRAWAL 10/01/21 05/27/25 sublingual tablet albuterol sulfate 90 mcg/actuation 2 puff inhalation Q 4HP PRN 08/26/23 05/27/25 aerosol inhaler Shortness Of Breath Or Wheez ing Previous Rx's ?Medication ?Instructions ?Recorded budesonide-formoterol HFA 80 1 puff inhalation DAILY B reathing 11/29/22 mcg-4.5 mcg/actuation aerosol problems #10.2 grams inhaler methocarbamol 750 mg tablet 750 mg PO TID PRN pain 5 d ays #15 12/10/23 tabs famotidine 20 mg tablet 20 mg PO DAILY Acid Reflux # 90 tabs 09/23/24 sildenafil 100 mg tablet See Rx Instructions .Route 1 11/24/23 .COMPLEX #30 tabs gabapentin 800 mg tablet 800 mg PO TID Pain #90 tabs 05/27/25 albuterol sulfate 90 mcg/actuation 1 inh inhalation Q6 H PRN shortness 08/05/25 aerosol inhaler (Ventolin HFA) of breath or wheezing # 6.7 grams amoxicillin 875 mg-potassium 1 tab PO BID 7 days #14 t abs 08/05/25 clavulanate 125 mg tablet doxycycline monohydrate 100 mg 100 mg PO BID 7 days #1 4 caps 08/05/25 capsule guaifenesin 600 mg tablet, 600 mg PO BID PRN cough #10 tabs 08/05/25 extended release 12 hr Allergies Allergy/AdvReac Type Severity Reaction Status Date / Time No Known Allergies Allergy Verified 05/27/25 16:10 [facility] Disclaimer: The information contained in this section may have been updated after the patient was seen, as this information can be updated by other users. Medical History (Updated 08/05/25 @ 14:09 by Rehana Lucas DO) Otitis externa Otitis media Left otitis media Social History Smoking Status: Former smoker second hand exposure: Yes alcohol intake: never substance use type: painkillers current occupational status: employed Travel in the last 8 weeks?: None household members: spouse current occupation: [employer] current occupational exposures/hazards: No caffeine: Yes Have you lived/traveled outside [place] in past 30 days?: No Contact w/someone who lives/traveled outside [place] past 30 days?: No Exposure to someone with infectious disease in past 14 days?: No Do you have a fever (greater than 100.4 F or 38 C)?: No Have you tested positive for COVID-19?: No Exposed to someone with COVID-19 in past 14 days?: No Do you have a sore throat?: No Do you have a cough?: No Do you have any weakness?: No Do you have any diarrhea?: No Are you experiencing any unusual bleeding?: No Do you have any muscle aches/pain?: No Do you have any abdominal pain?: No Are you experiencing loss of taste or smell?: No Other Medical History Have you received the Flu Vaccine for this season: No Have you received the Pneumonia Vaccine: No ROS Obtained: Yes All systems reviewed & no additional complaints except as documented Physical Exam General General appearance: alert and in no apparent distress Head Head exam: atraumatic and normocephalic Eye Eye exam: Present PERRL ENT ENT exam: Present mucous membranes moist Neck Neck exam: Present normal inspection Chest Chest inspection: Present symmetric chest wall rise; Absent tenderness Respiratory Respiratory exam: Present other (Rales auscultated in the upper lung durant, most pronounced in the right upper lung durant); Absent respiratory distress, wheezes or accessory muscle use Cardiovascular Cardiovascular exam: Present regular rate and normal rhythm Abdominal Exam Abdominal exam: Present soft; Absent distention or tenderness Extremities Exam Extremities exam: Present normal inspection; Absent tenderness, edema or calf tenderness Neurological Exam Neurological exam: Present alert and oriented X3 Psychiatric Psychiatric exam: Present normal affect Skin Skin exam: Present warm and dry HEART Score HEART Score HEART Score assessment performed?: Yes HEART Score: 2 Critical Care Critical Care Time Critical Care Time: No Medical Decision Making Jules Inquiry Pt receiving controlled substance: No Jules was queried for this patient: No Vital Signs Vital Signs: 08/05/25 10:10 08/05/25 10:46 08/05/25 11:00 Temperature 97.8 F Temperature Source Oral Pulse Rate 80 74 Pulse Rate [Right Radial] 76 Respiratory Rate 18 13 13 Blood Pressure 122/64 116/70 Blood Pressure [Right Arm] 134/79 Blood Pressure Mean 97 Blood Pressure Mean [Right Arm] 97 Blood Pressure Source [Right Arm] Automatic Cuff Blood Pressure Position [Right Arm] Supine 02 Sat by Pulse Oximetry 96 95 95 Oxygen Delivery Method Room Air Room Air 08/05/25 11:30 08/05/25 12:30 08/05/25 13:01 Temperature Temperature Source Pulse Rate 82 70 70 Pulse Rate [Right Radial] Respiratory Rate 11 L 13 13 Blood Pressure 140/71 131/75 139/74 Blood Pressure [Right Arm] Blood Pressure Mean 81 83 92 Blood Pressure Mean [Right Arm] Blood Pressure Source [Right Arm] Blood Pressure Position [Right Arm] 02 Sat by Pulse Oximetry 96 94 L 94 L Oxygen Delivery Method 08/05/25 13:30 Temperature Temperature Source Pulse Rate Pulse Rate [Right Radial] Respiratory Rate 14 Blood Pressure 148/76 H Blood Pressure [Right Arm] Blood Pressure Mean 95 Blood Pressure Mean [Right Arm] Blood Pressure Source [Right Arm] Blood Pressure Position [Right Arm] 02 Sat by Pulse Oximetry 96 Oxygen Delivery Method Lab Data Labs: Lab Results 08/05/25 10:01: SARS-CoV-2 (PCR) Not detected, Influenza A Untype (PCR) Not detected, Influenza Type B (PCR) Not detected 08/05/25 10:28: WBC 15.5 H, RBC 3.77 L, Hgb 11.4 L, Hct 34.1 L, MCV 90.5, MCH 30.2, MCHC 33.4, RDW 12.5, Plt Count 246, MPV 10.3, Neut % (Auto) 81.8 H, Lymph % (Auto) 11.1, [place] % (Auto) 6.1, Eos % (Auto) 0.1, Baso % (Auto) 0.3, Neut # (Auto) 12.7 H, Lymph # (Auto) 1.7, [place] # (Auto) 1.0, Eos # (Auto) 0.0, Baso # (Auto) 0.0, D-Dimer 1.13 H, Sodium 138, Potassium 3.6, Chloride 98, Carbon Dioxide 28, Anion Gap 15.6 H, BUN 15, Creatinine 0.80, Estimated Creat Clear 229, Estimated GFR 103, Est GFR ( Amer) 124, Glucose 198 H, Calcium 8.8, Total Bilirubin 0.8, AST 30, ALT 27, Alkaline Phosphatase 93, Troponin I < 0.01, Total Protein 7.4, Albumin 4.1, Globulin 3.3 H, Albumin/Globulin Ratio 1.2, HCV Ab KRISTINE w/Rflx PCR Qn Negative, HIV Ag/Ab Combo Qual Negative 08/05/25 10:30: VBG pH 7.37, VBG pCO2 50.6, VBG pO2 28.3, VBG HCO3 28.5, VBG Total CO2 30.0 H, VBG O2 Saturation 56.6, VBG Base Excess 3.1 H, VBG Lactic Acid 1.7 08/05/25 13:20: Troponin I < 0.01 08/05/25 10:28 08/05/25 10:28 Response Orders (Tests/Meds): ED MEDICATIONS Discontinued Medications Generic Name Dose Route Start Last Admin Trade Name Freq PRN Reason Stop Dose Admin Acetaminophen 1,000 mg 08/05/25 10:11 08/05/25 10:28 Acetaminophen 500mg Tab PO 08/05/25 10:12 1,000 mg ONCE ONE Administration Albuterol/Ipratropium 3 ml 08/05/25 10:11 08/05/25 10:28 Ipratropium/Albuterol 3 Ml [facility] 08/05/25 10:12 3 ml ONCE ONE Administration Albuterol/Ipratropium 6 ml 08/05/25 11:02 08/05/25 11:05 Ipratropium/Albuterol 3 Ml Neb IH 08/05/25 11:03 6 ml ONCE ONE Administration Iopamidol 85 ml 08/05/25 12:05 08/05/25 12:05 Iopamidol-370 (76%);100ml Bottle IV 08/05/25 12:06 85 ml ONCE ONE Administration Sodium Chloride 10 ml 08/05/25 12:05 08/05/25 12:05 Sodium Chloride 0.9% 10ml Syr (Rad Only) IV 08/05/25 12:06 10 ml ONCE ONE Administration Sodium Chloride 50 ml 08/05/25 12:05 08/05/25 12:05 0.9 % Sodium Chloride 50 Ml Vial IV 08/05/25 12:06 50 ml ONCE ONE Administration ORDERS Category Date Time Status CT angio chest PE protocol Stat Cat Scan 08/05/25 11:38 Completed Chest XR -- portable [XR chest portable] Stat Exams 08/05/25 10:13 Completed CBC w/Auto Diff [Complete Blood Count Auto Diff] Stat Lab 08/05/25 10:28 Completed CMP [Comprehensive Metabolic Panel] Stat Lab 08/05/25 10:28 Completed D-Dimer Stat Lab 08/05/25 10:28 Completed HIV Combo Stat Lab 08/05/25 10:28 Completed Hepatitis C Ab Qual. W/ RFX Stat Lab 08/05/25 10:28 Completed Rapid PCR Covid and Flu A/B Stat Lab 08/05/25 10:01 Completed Troponin I Q3H Lab 08/05/25 10:28 Completed Troponin I Q3H Lab 08/05/25 13:20 Completed VBG [Venous Blood Gas] Stat RT 08/05/25 10:30 Completed ECG Data Tracing #1: Attestation: I reviewed this ECG and interpreted as documented below: ECG Narrative: EKG shows normal sinus rhythm at a rate of 78. Normal CT, QRS, and QTc intervals. Normal axis. No acute ST elevations or signs of acute subendocardial or transmural ischemia. MDM Narrative Medical Decision Narrative: In summary, this is a 49y/o male presenting the emergency department for shortness of breath, chills, and productive cough. Differential diagnosis includes but is not limited to: Pneumonia, viral URI, bronchitis, less likely PE or ACS On my initial assessment, the patient is hemodynamically stable in no acute distress. Physical exam is notable for rales in the upper lung durant with a predominance in the right upper lung durant. Initial workup will be focused on evaluating for pneumonia with chest x-ray, CBC, CMP, EKG, and troponin. Wells score places patient in low risk group, scoring 1.4 hemoptysis. We will proceed with D-dimer to evaluate risk, however clinical suspicion of PE is low. Patient received Tylenol and DuoNeb for treatment. Labs personally interpreted which demonstrate leukocytosis white blood cell count of 15.5. There is a normocytic anemia with hemoglobin 11.4, decrease in comparison to most recent lab work from November 2023 in which hemoglobin was 13.6. No active bleeding on exam. Platelet count within normal limits. D- dimer is elevated at 1.13. According to years criteria, CT PE is indicated. VBG shows no acute acid-base abnormalities and normal lactate. CMP shows no significant findings. Troponin less than 0.01. Rapid COVID/flu was negative. XR personally interpreted which demonstrate bibasilar opacities, worrisome potentially for pneumonia. There also appears to be a small left pleural effusion. Radiology reads agreement. No obvious bony abnormalities, pneumothorax, or cardiomegaly. CT personally interpreted which demonstrate bilateral multifocal pneumonia without pulmonary embolism. On reassessment patient states that initial single DuoNeb did not help his symptoms. I elected to administer 2 additional DuoNebs, there has been no clinical change in his overall respiratory exam. No increased work of breathing, still saturating at 95% on room air. On reassessment again, to repeat DuoNebs did help the patient mobilize some of his secretions and actually coughed some things up. He remains saturating at 96% on room air. No increased work of breathing. Respiratory rate is 14. I reviewed laboratory and imaging results with him, stating he has a bilateral pneumonia. Considering the bilaterality of his pneumonia and somewhat atypical appearance, I will treat him with Augmentin and doxycycline for 10 days. I would additionally send him with prescriptions for guaifenesin and an albuterol inhaler. I gave them strict return precautions for worsening shortness of breath, shaking chills, or overall clinical worsening. He feels comfortable with discharge home.
--- NOTE | 2025-08-05 10:13 | XR_ITS ---
FINAL REPORT CLINICAL HISTORY: SOA COMPARISON: None FINDINGS: A portable view of the chest was obtained. No prior exams are available for comparison purposes. Heart size is normal. Bibasilar opacities are present, worrisome for pneumonia. A small effusion may be present as well. IMPRESSION: Bibasilar opacities, worrisome for pneumonia. Possible small pleural effusion. Reviewed, Interpreted and Dictated by Mary Blackman MD Transcribed by Tika Lynn Authenticated and [facility]
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
--- OUTSIDE RECORDS SUMMARY | 2025-08-05 10:25 | XMS_ITS | Encounter Summary ---
Author Organization Healthcare Address [address] [place] [address] Care Team Providers Care Mechanical Drafter Name Role Phone Pcp, No Primary Care Provider Unavailabl e Encounter Details Date Type Department Care Team (Late st Contact Info) Description 06/23/2024 Ophth Exam [facility] [address] [place] [address] Yovana Llanos MD [address] [place] [address] [id number] Social History Tobacco Use Types Packs/Day Years Used Date Smoking Tobacco: Never Smokeless Tobacco: Never Alcohol Use Standard Drinks/Week Comments Never 0 [...] place to sleep or slept in a half-way (including now)? No 06/18/2024 Utilities Answer Date Recorded In the past 12 months has th e electric, gas, oil, or water company threatened to shut off services in your home? No 06/18/2024 Sex and Gender Information Value Date Recorded Sex Assigned at Not on file Legal Sex Male 5:31 PM EDT Gender Identity Not on file Sexual Orientation Not on file documented as of this encounter Functional Status * Calculated C-SSRS Risk Score (Lifetime/Recent) Answer Date of Assessment Author No Risk Indicated 06/23/2024 9:02 PM EDT Luann Long RN * Question Answer Date of Assessment Author 1. Wish to be (Past 1 Month) No 024 9:02 PM EDT Luann Long RN 2. Non-Specific Active Suici trae Thoughts (Past 1 Month) No 06/23/2024 9:02 PM EDT Malathi Long RN 6. Suicidal Behavior (Lifetime) No 4 9:02 PM EDT Luann Long RN documented as of this encounter Plan of Treatment Not on file documented as of this encounter Visit Diagnoses Not on filedocumented in this encounter Additional Health Concerns Assessment Noted Time A Body Mass Index follow-up plan has been documented for the patient 06/24/2024 12:58 PM EDT documented as of this encounter Care Teams Mechanical Drafter Relationship Specialty Start Date End Date Pcp, [place] [address] PCP - General Family Medicine 06/16/23 documented as of this encounter
--- OUTSIDE RECORDS SUMMARY | 2025-08-05 10:25 | XMS_ITS | Encounter Summary ---
Author Organization Healthcare Address [address] [place] [address] Care Team Providers Care Radiation Oncology Nurse Name Role Phone Pcp, No Primary Care Provider Unavailabl e Encounter Details Date Type Department Care Team (Late st Contact Info) Description 06/16/2024 Ophth Exam [facility] [address] [place] [address] Ray Miller MD [address] [place], [place] [id number] Social History Tobacco Use Types Packs/Day Years Used Date Smoking Tobacco: Never Assessed Humiliation, Afraid, Rape, and Kick questionnair e [...] the money to buy more. Never true 08/28/20 24 Within the past 12 months, t [...] place to sleep or slept in a nursing home (including now)? No 06/18/2024 Utilities Answer Date Recorded In the past 12 months has th e [employer], gas, oil, or water company threatened to [...] Date of Assessment Author No Risk Indicated 06/19/2024 8:00 AM EDT Diandra Tapia RN * Question Answer Date of Assessment Author 1. Wish to be (Past 1 Month) No 06/19/2024 8:00 AM EDT Mora Solano cia, RN 2. Non-Specific Active Suicidal Thoughts (Past 1 Month) No 06/19/2024 8:00 AM EDT Mora Solano cia, RN 6. Suicidal Behavior (Lifetime) No 06/19/2024 8:00 AM EDT Mora Solano cia, RN documented as of this encounter Plan of Treatment Not on file documented as of this encounter Visit Diagnoses Not on filedocumented in this encounter Additional Health Concerns Assessment Noted Time A Body Mass Index follow-up plan has been documented for the patient 06/20/2024 1:11 PM EDT documented as of this encounter Care Teams Radiation Oncology Nurse Relationship Specialty Start Date End Date Pcp, No [address] [place] [address] PCP - General Family Medicine 06/16/23 documented as of this encounter
[2025-08-05] MEDS: ACETAMINOPHEN 500MG TAB 1000 MG PO (10:28)
[2025-08-05] MEDS: IPRATROPIUM/ALBUTEROL 3 ML NEB IH (10:28)
[2025-08-05 10:35] LABS: Lactate Venous 1.7 mmol/L (0.4-2.0); VBG HCO3 28.5 mmol/L (23-30); VBG PCO2 50.6 mmol/L (35-51); VBG PH 7.37 mmol/L (7.31-7.41); VBG PO2 28.3 mmol/L (28-40)
[2025-08-05 10:36] LABS: Hematocrit 34.1 % (42.0-52.0); Hemoglobin 11.4 g/dL (14.1-18.0); Immature Granulocytes % 0.6 %; Mean Corpuscular HGB Conc 33.4 g/dL (31.8-35.4); Mean Corpuscular Hemoglobin 30.2 pg (27.0-31.2); Mean Corpuscular Volume 90.5 fl (80-94); Nucleated Red Blood Cells % 0 %; Platelet Count 246 K/mm3 (142-424); Red Blood Count 3.77 M/mm3 (4.60-6.20); Red Cell Distribution Width-SD 41.6 fL; White Blood Count 15.5 K/mm3 (4.8-10.8)
[2025-08-05 10:52] LABS: Alanine Aminotransferase 27 U/L (12-78); Albumin Level 4.1 g/dl (3.5-5.0); Albumin/Globulin Ratio 1.2 (1.1-1.8); Alkaline Phosphatase 93 U/L (38-126); Anion Gap 15.6 mEq/L (5-15); Aspartate Amino Transferase 30 U/L (17-59); Bilirubin,Total 0.8 mg/dl (0.2-1.3); Blood Urea Nitrogen 15 mg/dl (9-20); Calcium 8.8 mg/dl (8.4-10.2); Carbon Dioxide 28 mmol/L (22.0-30.0); Chloride 98 mmol/L (98-107); Creatinine Clearance Estimated 229 mL/min (50-200); Creatinine,Serum 0.80 mg/dl (0.66-1.25); Estimated Glomerular Filt Rate 103 ml/min (>60); GFR (African American) 124 ML/MIN (>60); Globulin 3.3 g/dL (1.3-3.2); Glucose 198 mg/dl (74-100); Potassium 3.6 mmoL/L (3.5-5.1); Sodium 138 mmol/L (136-145); Total Protein,Serum 7.4 g/dl (6.3-8.2)
[2025-08-05 10:58] LABS: D-Dimer 1.13 ug/mL (0.0-0.5)
[2025-08-05] MEDS: IPRATROPIUM/ALBUTEROL 3 ML NEB 6 ML IH (11:05)
[2025-08-05 11:25] LABS: Troponin I < 0.01 ng/ml (0.00-0.034)
--- NOTE | 2025-08-05 11:38 | CT_ITS ---
FINAL REPORT TECHNIQUE: Axial imaging of the chest is obtained after the administration of contrast. 3-D MIP reformatted images were also obtained and reviewed per PE protocol. This study was performed with techniques to keep radiation doses as low as reasonably achievable (ALARA). Individualized dose reduction techniques using automated exposure control or adjustment of mA and/or kV according to the patient's size were employed. CLINICAL HISTORY: Shortness of air, cough, elevated D-dimer FINDINGS: There is poor opacification of the pulmonary arteries. No central pulmonary embolism is seen. Exam is otherwise nondiagnostic for PE. Exam is also limited for aortic dissection. There is no evidence of aneurysm. Heart size is normal. There is no axillary lymphadenopathy or mediastinal adenopathy. There is a mildly enlarged subcarinal lymph node measuring 28 mm. There is also a 22 mm right hilar lymph node. There is patchy bilateral lower lung mixed density opacities, right greater than left most consistent with pneumonia. There is no pleural or pericardial effusion. Limited evaluation of the upper abdomen is without acute abnormality. No acute osseous abnormality. Old posterior left rib fractures noted. IMPRESSION: No central pulmonary embolism. Exam otherwise nondiagnostic for PE. Bilateral, right greater than left, lower lung pneumonia. Lymphadenopathy, favor reactive. Reviewed, Interpreted and Dictated by Mary Blackman MD Transcribed by Beatris Dumont Authenticated and [facility]
--- NOTE | 2025-08-05 11:39 | PC.NURSE ---
report received from Jadyn AMARO. Pt resting comfortably in bed at this time.
[2025-08-05] MEDS: IOPAMIDOL-370 (76%);100ML BOTTLE 85 ML IV (12:05)
[2025-08-05] MEDS: 0.9 % SODIUM CHLORIDE 50 ML VIAL IV (12:05)
[2025-08-05] MEDS: SODIUM CHLORIDE 0.9% 10ML SYR (RAD ONLY) 10 ML IV (12:05)
[2025-08-05 12:12] LABS: Hepatitis C Ab Qual. W/ RFX NEGATIVE (Negative)
[2025-08-05 13:57] LABS: Troponin I < 0.01 ng/ml (0.00-0.034)
== END 2025-08-05 14:41 | disposition home or self-care (01) ==
PROVIDERS: Emergency Provider Student in an Organized Health Care Education/Training Program; PCP Nurse Practitioner Family
DX: R06.02 Shortness of breath (principal); J18.9 Pneumonia, unspecified organism; J90 Pleural effusion, not elsewhere classified; R79.1 Abnormal coagulation profile; R53.81 Other malaise; Z87.891 Personal history of nicotine dependence
CPT/HCPCS: 71045; 71275; 80053; 82803; 84484; 85025; 85378; 86803; 87389; 87636; 93005; 99285; Q9967